=== PATIENT | male | born 1950 | race Caucasian/White ===

== ENCOUNTER 2017-02-09 06:46 | Day surgery (SDC) | payer OTHER ==
[~2017-02-09] VITALS: Ht 167.6 cm; Wt 59.1 kg
[2017-02-09 07:16] VITALS: BP 119/75; PULSE 88; RESP 20; TEMP 97.6; O2SAT 91
[2017-02-09] MEDS ORDERED: SPIRCAP INH (07:35)
[2017-02-09] MEDS ORDERED: LIPI20TA PO (07:35)
[2017-02-09] MEDS ORDERED: PRIL20CA9 PO (07:35)
[2017-02-09] MEDS ORDERED: METO25TA3 PO (07:35)
[2017-02-09] MEDS ORDERED: LOSA25TA PO (07:35)
[2017-02-09] MEDS ORDERED: APIX5TAB PO (07:35)
[2017-02-09] MEDS ORDERED: FURO1TAB62 PO (07:35)
[2017-02-09] MEDS ORDERED: VITA10003 PO (07:35)
[2017-02-09] MEDS ORDERED: PYRI1TAB5 PO (07:35)
[2017-02-09] MEDS ORDERED: SODIUM CHLORIDE 0.9% FLUSH 10 ML FLUSH IV FLUSH PRN (07:45)
[2017-02-09] MEDS ORDERED: LIDOCAINE 1%/EPINEPHrine 1:100,000 SOLN 20 ML VIAL ONE (07:48)
[2017-02-09] MEDS ORDERED: SODIUM CHLOR 0.9% 1000 ML IV SCH (08:00)
[2017-02-09] MEDS ORDERED: MIDAZOLAM HCL 5 MG/5 ML VIAL ONE (08:28)
[2017-02-09] MEDS ORDERED: fentaNYL CITRATE 250 MCG/5 ML AMP ONE (08:28)
[2017-02-09] MEDS ORDERED: SODIUM CHLORIDE 0.9% FLUSH 10 ML FLUSH IV FLUSH SCH (09:00)
[2017-02-09 09:25] VITALS: BP 136/79; PULSE 76; RESP 20; TEMP 98; O2SAT 94
[2017-02-09 09:40] VITALS: BP 100/63; PULSE 68; RESP 20; O2SAT 94
[2017-02-09] MEDS ORDERED: oxyCODONE/ACETAMINOPHEN 5 MG/325 MG TAB PO PRN (10:00)
[2017-02-09 10:10] VITALS: BP 121/67; PULSE 65; RESP 20; O2SAT 94
[2017-02-09 10:40] VITALS: BP_SYST 91; BP_SYST 96; BP_DIAS 55; BP_DIAS 63; PULSE 80; RESP 20; O2SAT 95
[2017-02-09 11:20] VITALS: BP 111/71; PULSE 82; RESP 20; O2SAT 97
--- NOTE | 2017-02-09 16:38 | RADRPT ---
EXAM DATE/TIME: 02/09/2017 08:35 [facility] COMPARISON: No previous studies available for comparison. INDICATIONS : Left adrenal mass. SEDATION TIME: 30 minutes BIOPSY SITE: Left adrenal MEDICATION(S): 1.) 3 mg midazolam (Versed) IV 2.) 150 mcg fentanyl (Sublimaze) IV DEVICE(S): 1.) 18 gauge Rodriguez blunt needle 2.) 20 gauge Temno core biopsy needle MEDICAL HISTORY : Carcinoma, esophageal. SURGICAL HISTORY : None. ENCOUNTER: Initial ACUITY: 1 day PAIN SCORE: 0/10 LOCATION: Left adrenal. A total of two core specimen(s) were obtained and sent to the laboratory for pathologic evaluation. PROCEDURE: 1. CT guided adrenal, left biopsy. 2. Conscious sedation with continuous EKG and oximetry monitoring. 3. EKG and oximetry remained stable throughout the procedure. Prior to the procedure informed consent was obtained. Any appropriate prior imaging studies were rev iewed. Using automated exposure control and adjustment of the mA and/or kV according to patient size, radiat ion dose was kept as low as reasonably achievable to obtain optimal diagnostic quality images. The site was prepped in a sterile fashion. Full sterile technique was used, including cap, mask, cristobal rile gloves and gown and a large sterile sheet. Hand hygiene and 2% chlorhexidine and/or betadine/al cohol prep was utilized per protocol for cutaneous antisepsis. The skin and subcutaneous tissues wer e infiltrated with local anesthetic solution. With CT guidance the previously identified target was localized. Biopsy was performed using the presc ribed needle as above. Adequate hemostasis was obtained with compression at the puncture site. Follow-up CT scan reveals no hemorrhage. The patient tolerated the procedure well and there were no complications. The patient was returned to the Radiology Outpatient Unit in stable condition. CONCLUSION: Uncomplicated CT guided biopsy of left adrenal mass. Freddie Leos MD on February 09, 2017 at 16:35 Board Certified Radiologist. This report was verified electronically.
== END 2017-02-09 11:55 | disposition home or self-care (01) ==
LOC: HRAD 06:46 → HRIP 06:51 → HRAD 11:55
PROVIDERS: ATTEND Internal Medicine
DX: C74.02 Malignant neoplasm of cortex of left adrenal gland (principal)
CPT/HCPCS: 60699; 77012; 88305; 88341; 88342; 99152; 99153; J1642; J2250; J3010; J7030; 88360

== ENCOUNTER → 2017-02-13 | Outpatient (CLI) | payer OTHER ==
[~2017-02-13] VITALS: Ht 167.6 cm; Wt 58.3 kg
[~2017-02-13] MED LIST: APIX5TAB PO; CHLORHEXIDINE GLUCONATE 2 % 1 PACK (2 CLOTHS) TOPICAL PRN; FURO1TAB62 PO; INSULIN HUMAN REGULAR 1,000 UNITS/10 ML VIAL SQ PRN; LACTATED RINGER'S 1000 ML IV PRN; LIPI20TA PO; LOSA25TA PO; METO25TA3 PO; METOPROLOL TARTRATE 25 MG TAB PO PRN; POVIDONE IODINE 5% (ANTISEPSIS KIT) 4 APPLICATIONS EACH NARE PRN; PRIL20CA9 PO; PROPOFOL 200 MG/20 ML AMP IV ONE; PYRI1TAB5 PO; SODIUM CHLORID 0.9% 500 ML IV PRN; SPIRCAP INH; VITA10003 PO
[2017-02-13 08:47] VITALS: BP 120/72; PULSE 88; RESP 18; TEMP 97.5; O2SAT 99
--- NOTE | 2017-02-13 10:11 | EKG ---
Date Performed: 02/13/2017 Time Performed: 08:20:44 PTAGE: 66 years EKG: Sinus rhythm POSSIBLE LEFT ATRIAL ENLARGEMENT LOW QRS VOLTAGE IN EXTREMITY LEADS SEPTAL MYOCARDIAL INFARCTION , O F INDETERMINATE AGE Nonspecific T wave changes Abnormal electrocardiogram NO PREVIOUS TRACING DOCTOR: Quique Hoff Interpretating Date/Time 02/13/2017 10:10:14
[2017-02-13 11:08] VITALS: TEMP 98.4
[2017-02-13 11:22] VITALS: BP 100/64; PULSE 86; RESP 16; O2SAT 95
--- NOTE | 2017-02-13 11:26 | GIPROC ---
[facility] [address] [facility]. [facility], [address] EGD PROCEDURE REPORT EXAM DATE: 02/13/2017 PATIENT NAME: Hiren Mitchell MR #: [id number] BIRTHDATE: 1950 ATTENDING: Sera Cobb MD ORDER #: [id number] OFFSET ASSISTANT PRESS OPERATOR: Joaquin Nicole and Santo Alvarado STATUS: outpatient INDICATIONS: The patient is a 66 yr old male here for an EGD due to history of esophageal cancer , positive pet scan possible recurrence PROCEDURE PERFORMED: EGD w/ biopsy MEDICATIONS: None and Per Anesthesia. TOPICAL ANESTHETIC: Lidocaine Endeavor CONSENT: The patient understands the risks and benefits of the procedure and understands that these risks include, but are not limited to: sedation, allergic reaction, infection, perforation and/or bleeding. Alternative means of evaluation and treatment include, among others: physical exam, x-rays, and/or surgical intervention. The patient elects to proceed with this endoscopic procedure. medical equipment was checked for proper function. Hand hygiene and appropriate measures for infection prevention was taken. After the risks, benefits and alternatives of the procedure were thoroughly explained, Informed consent was verified, confirmed and timeout was successfully executed by the treatment team. The patient was anesthetized with topical anesthesia and the Pentax [id number] and [id number] endoscope was introduced through the mouth and advanced to the second portion of the duodenum. Retroflexed views revealed a hiatal hernia The gastroscope was then slowly withdrawn and removed. Ulcerated mass anastomotic site / possible recurrency -biopsy retained bile in stomach-suctioned s/p gastric pull up. ADVERSE EVENTS: There were no complications. IMPRESSIONS: 1. Ulcerated mass anastomotic site / possible recurrency -biopsy retained bile in stomach-suctioned s/p gastric pull up 2. Retroflexed views revealed a hiatal hernia RECOMMENDATIONS: 1. Await biopsy results. Biopsy results will not be ready for 7-10 days. If you don't hear from us in two weeks, call our office for biopsy results. 2. Continue PPI 3. Dilatations PRN PATIENT CONDITION: stable DISPOSITION: Home REPEAT EXAM: EGD pending biopsy results Sera Cobb MD eSigned: Sera Cobb MD 02/13/2017 11:25 AM cc: PATIENT NAME: Hiren Mitchell Sneha MR#: [id number]
== END ==
LOC: HEND 08:08
PROVIDERS: ATTEND Internal Medicine Gastroenterology
DX: Z85.01 Personal history of malignant neoplasm of esophagus (principal); K63.89 Other specified diseases of intestine; K44.9 Diaphragmatic hernia without obstruction or gangrene; R94.31 Abnormal electrocardiogram [ECG] [EKG]; C15.9 Malignant neoplasm of esophagus, unspecified
CPT/HCPCS: 00740; 43239; 88305; 93005; J7120

== ENCOUNTER → 2017-04-30 | Outpatient (CLI) | payer OTHER, MEDICAID ==
[~2017-04-30] MED LIST changes: +ALBU6.7H INH; -CHLORHEXIDINE GLUCONATE 2 % 1 PACK (2 CLOTHS) TOPICAL PRN; +DONE5TAB7 PO; +IBUP-1129 PO; -INSULIN HUMAN REGULAR 1,000 UNITS/10 ML VIAL SQ PRN; +IRON27TA PO; -LACTATED RINGER'S 1000 ML IV PRN; +MECL-62 PO; +MECL1TAB42; -METOPROLOL TARTRATE 25 MG TAB PO PRN; +OMEP40CA2 PO; +OXYC1TAB63 PO; -POVIDONE IODINE 5% (ANTISEPSIS KIT) 4 APPLICATIONS EACH NARE PRN; +PROCHLORPER PO; -PROPOFOL 200 MG/20 ML AMP IV ONE; -SODIUM CHLORID 0.9% 500 ML IV PRN; +SOTA120T PO; +ZANT150T2 PO
--- NOTE | 2017-04-30 11:16 | RADRPT ---
EXAM DATE/TIME: 04/30/2017 00:00 [facility] COMPARISON: No previous studies available for comparison. INDICATIONS : Dysphagia. FLUORO TIME: 1.0 minutes IMAGE COUNT: 0 CONTRAST: Dose as prescribed by speech pathologist. MEDICAL HISTORY : Carcinoma, esophageal. Chemotherapy. SURGICAL HISTORY : None. ENCOUNTER: Initial ACUITY: 3 months PAIN SCORE: 0/10 LOCATION: Esophagus FINDINGS: A modified barium swallow was performed with speech pathology. The patient was given thin barium, ap plesauce thick barium and barium-coated cracker. The oral phase is normal without delay in posterior propulsion. The pharyngeal phase is also normal without pooling in the paired valleculae or pirifor m sinuses. There is no penetration of the supraglottic larynx or tracheal aspiration. CONCLUSION: Unremarkable modified barium swallow. Vinod Giraldo MD on April 30, 2017 at 11:08 Board Certified Radiologist. This report was verified electronically.
== END ==
LOC: HRAD 10:29
PROVIDERS: ATTEND Internal Medicine
DX: R13.10 Dysphagia, unspecified (principal)
CPT/HCPCS: 74230; G8996-GN; G8997-GN; G8998-GN

== ENCOUNTER 2017-05-01 19:48 | Inpatient (IN) | payer OTHER, MEDICAID, MEDICARE ==
[~2017-05-01] VITALS: Ht 167.6 cm; Wt 51.0 kg
[~2017-05-01 19:48] MED LIST changes: -ALBU6.7H INH; -DONE5TAB7 PO; -IBUP-1129 PO; -IRON27TA PO; -MECL-62 PO; -MECL1TAB42; -OMEP40CA2 PO; -OXYC1TAB63 PO; -PROCHLORPER PO; -SOTA120T PO; -ZANT150T2 PO
[2017-05-01 20:05] VITALS: BP 103/53; PULSE 76; RESP 16; TEMP 98.7; O2SAT 88
[2017-05-01] MEDS ORDERED: SODIUM CHLORIDE 0.9% FLUSH 10 ML FLUSH IVF PRN (20:15)
[2017-05-01] MEDS ORDERED: PANTOPRAZOLE INJ 80 MG in SODIUM CHLORIDE 0.9% INJ 35 ML IV ONE (20:15)
[2017-05-01] MEDS ORDERED: SODIUM CHLORID 0.9% 500 ML INJ 500 ML IV ONE (20:15)
--- NOTE | 2017-05-01 20:19 | PD ---
HPI Chief Complaint: General Weakness Time Seen by Provider: 20:13 Travel History International Travel<30 days: No Contact w/Intl Traveler<30days: No Traveled to known affect area: No History of Present Illness HPI 66-year-old male with history of A. fib currently on Eliquis, AAA repair, COPD, CAD, multiple medical issues, stage IV esophageal cancer currently on chemotherapy and hospice, presents to the ER today because he states that he has been feeling weak and shortness of breath for the past few weeks worsening in the past few days. He admits he has had some black stools although he is on iron. He denies any fevers, vomiting, diarrhea, chest pains, or other issues. Modifying Factors: None Associated Signs & Symptoms: General weakness and shortness of breath Risk Factors: Elderly PFSH Past Medical History Cancer: Yes (ESOPHAGEAL) Cardiovascular Problems: Yes (AFIB,CHF,CAD,HEART ATTACK) Diabetes: No Endocrine: No Genitourinary: No Hepatitis: No Hiatal Hernia: Yes Immune Disorder: No Musculoskeletal: No Neurologic: No Psychiatric: No Reproductive: No Respiratory: Yes (COPD) Thyroid Disease: No ?: Not Past Surgical History Abdominal Surgery: Yes (AAA ) AICD: Yes Body Medical Devices: 2 LEFT LEG, POSSIBLE IN HEART Cardiac Surgery: Yes (AAA REPAIR) Ear Surgery: No Endocrine Surgery: No Eye Surgery: No Genitourinary Surgery: No Gynecologic Surgery: No Joint Replacement: No Oral Surgery: No Pacemaker: Yes (ST LEANDRA PACEMAKER) Thoracic Surgery: Yes (ICD PACEMAKER, PORT TO RIGHT CHEST) Social History Tobacco Use: No Substance Use: No Allergies-Medications (Allergen,Severity, Reaction): Coded Allergies: No Known Allergies (Unverified , 05/01/17) Reported Meds & Prescriptions Reported Meds & Active Scripts Active Reported Vitamin D-3 (Cholecalciferol) 1,000 Unit Tab 1,000 Units PO DAILY Spiriva Handihaler (Tiotropium Inh) 18 Mcg Cap 18 Mcg INH DAILY 1 capsule = 18 mcg Prilosec (Omeprazole) 20 Mg Cap 20 Mg PO DAILY Metoprolol Tartrate 25 Mg Tab 25 Mg PO BID Losartan (Losartan Potassium) 25 Mg Tab 25 Mg PO DAILY Lipitor (Atorvastatin Calcium) 20 Mg Tab 20 Mg PO HS Lasix (Furosemide) 20 Mg Tab 20 Mg PO BID B6 Natural (Pyridoxine HCl) 100 Mg Tab 1 Tab PO DAILY Eliquis (Apixaban) 5 Mg Tab 5 Mg PO BID Review of Systems Except as stated in HPI: all other systems reviewed are Neg Physical Exam Narrative GENERAL: Thin elderly white male patient currently in moderate distress. Awake and oriented 3. SKIN: Focused skin assessment warm/dry. Appears pale. HEAD: Atraumatic. Normocephalic. EYES: Pupils equal and round. No scleral icterus. No injection or drainage. ENT: No nasal bleeding or discharge. Mucous membranes pink and moist. NECK: Trachea midline. No JVD. CARDIOVASCULAR: Regular rate and rhythm. No murmur appreciated. RESPIRATORY: No accessory muscle use. Basilar crackles bilaterally. Breath sounds equal bilaterally. GASTROINTESTINAL: Abdomen soft, non-tender, nondistended. Hepatic and splenic margins not palpable. MUSCULOSKELETAL: No obvious deformities. No clubbing. No cyanosis. No edema. RECTAL EXAM: No masses or tenderness, stool is dark, Hemoccult-positive. NEUROLOGICAL: Awake and alert. No obvious cranial nerve deficits. Motor grossly within normal limits. Normal speech. PSYCHIATRIC: Appropriate mood and affect; insight and judgment normal. Data Data Last Documented VS Vital Signs Date Time Temp Pulse Resp B/P Pulse Ox O2 Delivery O2 Flow Rate FiO2 05/01/17 20:09 18 96 Nasal Cannula 05/01/17 20:05 98.7 76 103/53 Orders Complete Blood Count With Diff (05/01/17 20:13) Comprehensive Metabolic Panel (05/01/17 20:13) Prothrombin Time / Inr (Pt) (05/01/17 20:13) Act Partial Throm Time (Ptt) (05/01/17 20:13) Type And Screen (05/01/17 20:13) Ecg Monitoring (05/01/17 20:13) Iv Access Insert/Monitor (05/01/17 20:13) Oximetry (05/01/17 20:13) Sodium Chloride 0.9% Flush (Ns Flush) (05/01/17 20:15) Pantoprazole Inj (Protonix Inj) (05/01/17 20:15) Pantoprazole Inj (Protonix Inj) (05/01/17 20:15) Sodium Chlorid 0.9% 500 Ml Inj (Ns 500 M (05/01/17 20:15) Prothrombin Complex Conc Inj (Kcentra In (05/01/17 21:15) Admit Order (Ed Use Only) (05/01/17 21:52) Labs Laboratory Tests Test 05/01/17 20:15 White Blood Count 0.3 TH/MM3 Red Blood Count 3.99 MIL/MM3 Hemoglobin 10.3 GM/DL Hematocrit 31.3 % Mean Corpuscular Volume 78.5 FL Mean Corpuscular Hemoglobin 25.9 PG Mean Corpuscular Hemoglobin 33.0 % Concent Red Cell Distribution Width 19.8 % Platelet Count 101 TH/MM3 Mean Platelet Volume 7.4 FL Neutrophils (%) (Auto) % Lymphocytes (%) (Auto) % Monocytes (%) (Auto) % Eosinophils (%) (Auto) % Basophils (%) (Auto) % Neutrophils # (Auto) TH/MM3 Lymphocytes # (Auto) TH/MM3 Monocytes # (Auto) TH/MM3 Eosinophils # (Auto) TH/MM3 Basophils # (Auto) TH/MM3 CBC Comment AUTO DIFF Differential Total Cells 50 Counted Neutrophils % (Manual) 26 % Band Neutrophils % 8 % Lymphocytes % 56 % Monocytes % 10 % Neutrophils # (Manual) 0.1 TH/MM3 Nucleated Red Blood Cells 4 /100 WBC Differential Comment FINAL DIFF MANUAL Platelet Estimate LOW Platelet Morphology Comment NORMAL Ovalocytes 2+ Keratocytes OCC Prothrombin Time 14.0 SEC Prothromb Time International 1.3 RATIO Ratio Activated Partial 33.1 SEC Thromboplast Time Sodium Level 134 MEQ/L Potassium Level 4.7 MEQ/L Chloride Level 101 MEQ/L Carbon Dioxide Level 25.2 MEQ/L Anion Gap 8 MEQ/L Blood Urea Nitrogen 45 MG/DL Creatinine 1.48 MG/DL Estimat Glomerular Filtration 48 ML/MIN Rate Random Glucose 140 MG/DL Calcium Level 8.0 MG/DL Total Bilirubin 1.3 MG/DL Aspartate Amino Transf 25 U/L (AST/SGOT) Alanine Aminotransferase 23 U/L (ALT/SGPT) Alkaline Phosphatase 69 U/L Total Protein 5.8 GM/DL Albumin 2.6 GM/DL Blood Type A POSITIVE Antibody Screen NEGATIVE Blood Bank Comment [facility] Medical Decision Making Medical Screen Exam Complete: Yes Emergency Medical Condition: Yes Medical Record Reviewed: Yes Interpretation(s) Laboratory Tests Test 05/01/17 20:15 White Blood Count 0.3 TH/MM3 (4.0-11.0) Red Blood Count 3.99 MIL/MM3 (4.50-5.90) Hemoglobin 10.3 GM/DL (13.0-17.0) Hematocrit 31.3 % (39.0-51.0) Mean Corpuscular Volume 78.5 FL (80.0-100.0) Mean Corpuscular Hemoglobin 25.9 PG (27.0-34.0) Red Cell Distribution Width 19.8 % (11.6-17.2) Platelet Count 101 TH/MM3 (150-450) Band Neutrophils % 8 % (0-6) Lymphocytes % 56 % (9-44) Monocytes % 10 % (0-8) Neutrophils # (Manual) 0.1 TH/MM3 (1.8-7.7) Nucleated Red Blood Cells 4 /100 WBC (0-0) Platelet Estimate LOW (NORMAL) Ovalocytes 2+ (NORMAL) Prothrombin Time 14.0 SEC (9.8-11.6) Activated Partial 33.1 SEC Thromboplast Time (24.3-30.1) Sodium Level 134 MEQ/L (136-145) Blood Urea Nitrogen 45 MG/DL (7-18) Creatinine 1.48 MG/DL (0.60-1.30) Estimat Glomerular Filtration 48 ML/MIN (>89) Rate Random Glucose 140 MG/DL (74-106) Calcium Level 8.0 MG/DL (8.5-10.1) Total Bilirubin 1.3 MG/DL (0.2-1.0) Total Protein 5.8 GM/DL (6.4-8.2) Albumin 2.6 GM/DL (3.4-5.0) Differential Diagnosis Dehydration versus sepsis versus metabolic issues versus pneumonia versus anemia /GI bleed Narrative Course Vital signs are stable in the ER. Hemoglobin is 10. However, he is very neutropenic. He is not running fevers and is not showing signs of sepsis currently. He is Hemoccult positive and has a GI bleed. Protonix was initiated in the ER with bolus and drip. He is on Eliquis and case Central was also started in the ER. At this point, case is discussed with Dr. Barbosa for admission for further treatment. HemaPrompt Point of Care Internal Pos. & Neg. Controls: Passed Fecal Specimen Occult Blood: Positive Diagnosis Primary Impression: GI bleed Additional Impression: Neutropenia Admitting Information Admitting Physician Requests: Admit Obed Pineda MD May 01, 2017:19
[2017-05-01 20:49] LABS: HEMATOCRIT 31.3 % (39.0-51.0); MEAN CELL VOLUME 78.5 FL (80.0-100.0); MEAN CORPUSCULAR HEMOGLOBIN 25.9 PG (27.0-34.0); PLATELET COUNT 101 TH/MM3 (150-450); RED BLOOD COUNT 3.99 MIL/MM3 (4.50-5.90); RED CELL DISTRIBUTION WIDTH 19.8 % (11.6-17.2); WHITE BLOOD COUNT 0.3 TH/MM3 (4.0-11.0)
[2017-05-01 20:59] LABS: APTT (PATIENT) 33.1 SEC (24.3-30.1); INTERNATIONAL NORMALIZED RATIO 1.3 RATIO
[2017-05-01 21:04] LABS: HEMO FLAGS AUTO DIFF
[2017-05-01] MEDS ORDERED: PROTHROMBIN COMPLEX CONC INJ 1,500 UNITS in SYRINGE/BAG 1 EA IV ONE (21:15)
[2017-05-01 21:17] LABS: ALKALINE PHOSPHATASE 69 U/L (45-117); ALT (GPT) 23 U/L (12-78); ANION GAP 8 MEQ/L (5-15); AST (GOT) 25 U/L (15-37); BICARBONATE 25.2 MEQ/L (21.0-32.0); BLOOD UREA NITROGEN 45 MG/DL (7-18); CHLORIDE 101 MEQ/L (98-107); GLOMERULAR FILTRATION RATE 48 ML/MIN (>89); POTASSIUM 4.7 MEQ/L (3.5-5.1); SODIUM (NA) 134 MEQ/L (136-145); TOTAL BILIRUBIN ADULT 1.3 MG/DL (0.2-1.0)
[2017-05-01 21:26] LABS: BANDS 8 % (0-6); CORRECTED NUCLEATED RBC 4 /100 WBC (0-0); POLYS (SEG NEUTROPHILS) 26 % (16-70); WBC DIFF SAMPLE 50
[2017-05-01 21:28] LABS: KERATOCYTES OCC (NORMAL); OVALOCYTES 2+ (NORMAL); PLATELET ESTIMATE SMEAR LOW (NORMAL); PLATELET MORPHOLOGY NORMAL (NORMAL); SCAN/DIFF FINAL DIFF MANUAL
[2017-05-01 21:32] LABS: NEUTROPHIL # MANUAL DIFF 0.1 TH/MM3 (1.8-7.7)
[2017-05-01] MEDS: SODIUM CHLOR 0.9% 1000 ML INJ 1,000 ML IV SCH (21:53)
--- NOTE | 2017-05-01 21:58 | HHI.HP ---
HPI Service [facility] Primary Care Physician Anshu Chicas M.D. Admission Diagnosis GI bleed/severe neutropenia Diagnoses: (1) GI bleed Diagnosis: Principal (2) Neutropenia Diagnosis: Principal (3) Bandemia Diagnosis: Principal (4) Esophageal cancer Diagnosis: Principal (5) A-fib Diagnosis: Principal Travel History International Travel<30 Days: No Contact w/Intl Traveler <30 Da: No Traveled to Known Affected Are: No History of Present Illness This is a 66-year-old male with a PMH of Stage IV Esophageal CA on Chemo/Hospice , A-fib on Eliquis, HTN, COPD and CAD who presented to the ER with complaints of generalized weakness and SOB, also reports black/tarry stool x2-3 days. Denies fever, chills, cough or chest pain. Follows w/ Dr. Fry as outpatient, last seen on 04/28/17 w/ complaints of dysphagia, referred for Barium Swallow and GI eval w/ Dr. King, Barium Swallow 04/30/17 unremarkable. On arrival, BP 13 or 53, HR 76, O2 sat 88% on RA, Afebrile. WBC 0.3, previously 7.4 on 04/28. Hemoglobin 10.3, previously 10.7. Platelets 101, previously 256 on . Bands 8%. Creatinine 1.48, previously 1.04 on 04/28/17. INR 1.3. Hemoccult + on exam. Started on Protonix gtt in ER. Review of Systems Except as stated in HPI: all other systems reviewed are Neg ROS: 14 point review of systems otherwise negative. Past Family Social History Past Medical History PMH: Stage IV Esophageal CA on Chemo/Hospice, A-fib on Eliquis, HTN, COPD and CAD Past Surgical History PAST SURGICAL HISTORY: AAA Repair, AICD ([place]), Right Chest Port Allergies: Coded Allergies: No Known Allergies (Unverified , 05/01/17) Family History PAST FAMILY HISTORY: Reviewed. No h/o DM or CAD Social History PAST SOCIAL HISTORY: Negative for alcohol, tobacco or drugs. Physical Exam Vital Signs Vital Signs Date Time Temp Pulse Resp B/P Pulse Ox O2 Delivery O2 Flow Rate FiO2 05/01/17 20:09 18 96 Nasal Cannula 05/01/17 20:05 98.7 76 16 103/53 88 Physical Exam PE: GENERAL: Middle-aged, thin, frail, white male in no acute distress. HEENT: PERRLA, EOMI. No scleral icterus or conjunctival pallor. No lid lag or facial droop. CARDIOVASCULAR: Regular rate and rhythm. No obvious murmurs to auscultation. No chest tenderness to palpation. RESPIRATORY: No obvious rhonchi or wheezing. Crackles at bases bilaterally otherwise breath sounds equal bilaterally. GASTROINTESTINAL: Abdomen soft, non-tender, nondistended. BS normal. MUSCULOSKELETAL: Extremities without clubbing, cyanosis, or edema. No obvious deformities. NEUROLOGICAL: Awake, alert and oriented x4. No focal neurologic deficits. Moving both upper and lower extremities spontaneously. Laboratory Laboratory Tests Test 05/01/17 20:15 White Blood Count 0.3 Red Blood Count 3.99 Hemoglobin 10.3 Hematocrit 31.3 Mean Corpuscular Volume 78.5 Mean Corpuscular Hemoglobin 25.9 Mean Corpuscular Hemoglobin 33.0 Concent Red Cell Distribution Width 19.8 Platelet Count 101 Mean Platelet Volume 7.4 Neutrophils (%) (Auto) Lymphocytes (%) (Auto) Monocytes (%) (Auto) Eosinophils (%) (Auto) Basophils (%) (Auto) Neutrophils # (Auto) Lymphocytes # (Auto) Monocytes # (Auto) Eosinophils # (Auto) Basophils # (Auto) CBC Comment AUTO DIFF Differential Total Cells 50 Counted Neutrophils % (Manual) 26 Band Neutrophils % 8 Lymphocytes % 56 Monocytes % 10 Neutrophils # (Manual) 0.1 Nucleated Red Blood Cells 4 Differential Comment FINAL DIFF MANUAL Platelet Estimate LOW Platelet Morphology Comment NORMAL Ovalocytes 2+ Keratocytes OCC Prothrombin Time 14.0 Prothromb Time International 1.3 Ratio Activated Partial 33.1 Thromboplast Time Sodium Level 134 Potassium Level 4.7 Chloride Level 101 Carbon Dioxide Level 25.2 Anion Gap 8 Blood Urea Nitrogen 45 Creatinine 1.48 Estimat Glomerular Filtration 48 Rate Random Glucose 140 Calcium Level 8.0 Total Bilirubin 1.3 Aspartate Amino Transf 25 (AST/SGOT) Alanine Aminotransferase 23 (ALT/SGPT) Alkaline Phosphatase 69 Total Protein 5.8 Albumin 2.6 Blood Type A POSITIVE Antibody Screen NEGATIVE Blood Bank Comment Result Diagram: 05/01/17201405/01/172014 Assessment and Plan Problem List: (1) GI bleed ICD Code: K92.2 Status: Acute (2) Esophageal cancer ICD Code: C15.9 Status: Acute (3) Neutropenia ICD Code: D70.9 Status: Acute (4) Bandemia ICD Code: D72.825 Status: Acute (5) A-fib ICD Code: I48.91 Status: Acute Assessment and Plan A/P: 1. GI Bleed: h/o A-fib on Eliquis, c/o black stool x2-3 days, Hemoccult + on exam. Vitals stable. Hgb 10.3, at baseline. Type & Screen, monitor Hgb/Hct, started on Protonix gtt in ER, will continue. Consult GI for further eval. S/ p Kcentra in ER. 2. Esophageal CA: Stage IV, currently on Chemo/Hospice, following w/ Dr. Fry , last seen 04/28/17 w/ c/o dysphagia, referred for GI and Barium Swallow, Swallow 04/30/17 unremarkable, images reviewed by me. Will consult Dr. Fry for further recommendations. 3. Neutropenia: WBC 0.3, previously 7.4 on 04/28/17. Afebrile. Neutropenic Precautions. 4. Bandemia: Bands 8%, Afebrile. Check Blood Cultures, CXR, U/a. Start empiric treatment w/ IV Cefepime. Will monitor, follow cultures. 5. A-fib: Chronic. On Eliquis, will hold in light of GI Bleed. Hold Metoprolol/Sotalol in light of borderline hypotension. Will monitor. 6. DVT Prophylaxis: Pharmacologic contraindication secondary to GI Bleed. 7. Code Status: Full Code. Discussed Code Status at length w/ patient, does have living will at bedside stating no resuscitation, however upon discussion w / patient, he does wish to proceed w/ IV medications, Vasopressors, Compressions , Intubation if needed. 8. Social work for d/c planning as needed. 9. Case discussed w/ ER physician at length Physician Certification 2 Midnight Certification Type: Admission for Inpatient Services Order for Inpatient Services The services are ordered in accordance with Medicare regulations or non- Medicare payer requirements, as applicable. In the case of services not specified as inpatient-only, they are appropriately provided as inpatient services in accordance with the 2-midnight benchmark. Estimated LOS (days): 2 days is the estimated time the patient will need to remain in the hospital, assuming treatment plan goals are met and no additional complications. Post-Hospital Plan: Not yet determined Chanell Barbosa MD May 01, 2017 21:58
[2017-05-01] MEDS ORDERED: LACTULOSE SYRUP 20 GM/30 ML CUP PO PRN (22:00)
[2017-05-01] MEDS ORDERED: BISACODYL 10 MG SUPP RECTAL PRN (22:00)
[2017-05-01] MEDS ORDERED: ONDANSETRON HCL 4 MG/2 ML VIAL IVP PRN (22:00)
[2017-05-01] MEDS ORDERED: ACETAMINOPHEN/HYDROcodone 325 MG/5 MG TAB PO PRN (22:00)
[2017-05-01] MEDS ORDERED: CEFEPIME INJ 1,000 MG in SODIUM CHLORIDE 0.9% INJ 100 ML IV SCH (22:00)
[2017-05-01] MEDS ORDERED: MAGNESIUM HYDROXIDE SUSP 30 ML CUP PO PRN (22:00)
[2017-05-01] MEDS ORDERED: SODIUM CHLORIDE 0.9% FLUSH 10 ML FLUSH IV FLUSH PRN (22:00)
[2017-05-01] MEDS ORDERED: CEFEPIME 2000 MG/NS 100 ML IV SCH ×2 (22:00)
[2017-05-01] MEDS ORDERED: SENNOSIDES 8.6 MG TAB PO PRN (22:00)
[2017-05-01] MEDS ORDERED: ACETAMINOPHEN 325 MG TAB PO PRN (22:00)
[2017-05-01] MEDS ORDERED: PROCHLORPER PO (22:32)
[2017-05-01] MEDS ORDERED: IRON27TA PO (22:32)
[2017-05-01] MEDS ORDERED: SOTA120T PO (22:32)
[2017-05-01] MEDS ORDERED: DONE5TAB7 PO (22:32)
[2017-05-01] MEDS ORDERED: OMEP40CA2 PO (22:32)
[2017-05-01] MEDS ORDERED: OXYC1TAB63 PO (22:32)
[2017-05-01] MEDS ORDERED: MECL1TAB42 (22:32)
[2017-05-01] MEDS ORDERED: ZANT150T2 PO (22:32)
[2017-05-01] MEDS ORDERED: IBUP-1129 PO (22:32)
[2017-05-01] MEDS ORDERED: ALBU6.7H INH (22:32)
[2017-05-01] MEDS ORDERED: MECL-62 PO (22:32)
--- NOTE | 2017-05-01 22:39 | RADRPT ---
EXAM DATE/TIME: 05/01/2017 22:16 [facility] COMPARISON: No previous studies available for comparison. INDICATIONS : Shortness of breath. MEDICAL HISTORY : Carcinoma, esophageal. SURGICAL HISTORY : None. ENCOUNTER: Initial ACUITY: 1 week PAIN SCORE: 0/10 LOCATION: Bilateral chest FINDINGS: A single view of the chest demonstrates right [id number] and superior vena cava. Pacer lead tip in right ventricle. Small right effusion. Minimal basal airspace disease. Multiple surgical clips in th e mediastinum. CONCLUSION: 1. Blunting of the right costophrenic angle characteristic of a small effusion or scarring. Minimal b mike atelectasis. Rod Hernandez MD on May 01, 2017 at 22:36 Board Certified Radiologist. This report was verified electronically.
[2017-05-01] MEDS ORDERED: MECLIZINE HCL 25 MG TAB PO PRN (23:30)
[2017-05-01] MEDS ORDERED: ALBUTEROL SULFATE 90 MCG/ACT HFA 18 GM INHALER INH PRN (23:45)
[2017-05-01] MEDS: PANTOPRAZOLE INJ 80 MG in SODIUM CHLORIDE 0.9% INJ 100 ML IV SCH (23:48)
[2017-05-02] VITALS (21 sets, daily range): BP systolic 62–138; BP diastolic 40–66; PULSE 63–80; RESP 16–27; TEMP 97.4–98.8; O2SAT 88–100
[2017-05-02] MEDS ORDERED: SODIUM CHLOR 0.9% 1000 ML INJ 1,000 ML IV ONE (01:45)
--- NOTE | 2017-05-02 02:06 | HHI.PR ---
Addendum to Inpatient Note Addendum Reason: Additional Documentation Additional Information S: Patient is a 66-year-old with neutropenia, undergoing chemotherapy and radiation for esophageal cancer, here for a suspected GI bleed (Hemoccult- positive), who had TeresaBrittny called for hypotension and low pulse ox. Resident service received a call from call center at 1:29 AM. Promptly arrived at bedside to find patient sitting in no acute distress. Patient denies any chest pain, shortness of breath, lightheadedness, dizziness, presyncope, syncope. Per nurse report, his extremities are cold, it's difficult to palpate a radial pulse , he has acrocyanosis, pulse ox in the 70s and blood pressure in the 70s as well. Patient does endorse melanotic stools, but reports that he is on iron. O: Vitals: Blood pressure 70/47, pulse ox 88, pulse 73. Gen.: Cachectic gentleman lying in bed in no acute distress Respiratory: Diffusely coarse, rhonchorous breath sounds Cardiovascular: Difficult to appreciate over rhonchorous breath sounds Abdomen: Soft, mildly tender to palpation in the left lower quadrant with associated rebound tenderness, nondistended Extremities: Hands and feet are cold to the touch with acrocyanosis of the nails. No tenderness or edema. A/P: Patient is a 66-year-old with a history of heart failure and COPD and neutropenia, undergoing chemotherapy and radiation for esophageal cancer, here for a suspected GI bleed, who had TeresaBrittny called for hypotension. Differential diagnosis includes septic shock versus cardiogenic shock versus volume depletion. 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 Ordered transfusion of 2 units PRBC with neutropenic precautions per blood bank Stat abdominal x-ray, flat and upright - my read at bedside shows no free air under diaphragm, unlikely perforation Stiven Gupta MD R1 May 02, 2017 02:06
[2017-05-02 02:10] LABS: INTERNATIONAL NORMALIZED RATIO 1.2 RATIO; PROTHROMBIN TIME - PATIENT 13.6 SEC (9.8-11.6)
[2017-05-02 02:12] LABS: HEMATOCRIT 22.8 % (39.0-51.0)
[2017-05-02] MEDS ORDERED: NOREPINEPHRINE-DEXTROSE DRIP 250 ML IV ONE (02:12)
[2017-05-02 02:14] LABS: REVIEW FLAG FINAL
[2017-05-02] MEDS: SODIUM CHLOR 0.9% 1000 ML INJ 1,000 ML IV SCH ×2 (02:26→12:28)
[2017-05-02] MEDS ORDERED: diphenhydrAMINE HCL 25 MG CAP PO PRN (02:30)
[2017-05-02] MEDS ORDERED: ACETAMINOPHEN 325 MG TAB PO PRN (02:30)
[2017-05-02] MEDS ORDERED: SODIUM CHLOR 0.9% 250 ML INJ 250 ML IV ONE (02:30)
[2017-05-02] MEDS ORDERED: FUROSEMIDE 20 MG/2 ML VIAL IV ONE (02:30)
[2017-05-02] MEDS ORDERED: Vancomycin Consult Pharmacy 1 EA OTHER SCH (04:00)
[2017-05-02] MEDS ORDERED: VANCOMYCIN INJ 1,000 MG in SODIUM CHLOR 0.9% 250 ML INJ 250 ML IV ONE (04:00)
[2017-05-02] MEDS: VASOPRESSIN INJ 40 UNITS in DEXTROSE 5% IN WATER 100ML INJ 98 ML IV SCH ×4 (04:03→21:28)
[2017-05-02] MEDS: NOREPINEPHRINE 4 MG/D5W 250 ML IV SCH ×3 (04:03→14:45)
--- NOTE | 2017-05-02 04:20 | PD.CONS ---
HPI Service Critical Care Medicine Consult Requested By Primary Care Physician Anshu Chicas M.D. History of Present Illness 66-year-old male with a Stage IV Esophageal cancer treated with chemotherapy, atrial fibrillation on Eliquis, hypertension, COPD, coronary artery disease presented to the ER with complaints of generalized weakness and shortness of breath, and also reports black/tarry stool x 2-3 days. Denies fever, chills, cough or chest pain. Follows w/ Dr. Fry as outpatient, last seen on 04/28/17 w / complaints of dysphagia, referred for Barium Swallow and GI eval w/ Dr. King, Barium Swallow 04/30/17 unremarkable. On arrival he was hemodynamically stable with hemoglobin 10.7. database specialist today he was found to be hypotensive with hemoglobin dropped to 7.5 and is now transferred to ICU. Critical care consult was requested and assistance to manage hypotension and GI bleed. His white count is also found to be 0.3 and neutrophils 0.1. Review of Systems Constitutional: COMPLAINS OF: Diaphoretic episodes, Fatigue, Dizziness, DENIES : Fever, Weight gain, Weight loss, Chills, Change in appetite, Night Sweats Endocrine: DENIES: Heat/cold intolerance, Polydipsia, Polyuria, Polyphagia Eyes: DENIES: Blurred vision, Diplopia, Eye inflammation, Eye pain, Vision loss , Photosensitivity, Double Vision Ears, nose, mouth, throat: DENIES: Tinnitus, Hearing loss, Vertigo, Nasal discharge, Oral lesions, Throat pain, Hoarseness, Ear Pain, Running Nose, Epistaxis, Sinus Pain, Toothache, Odynophagia Respiratory: DENIES: Apneas, Cough, Snoring, Wheezing, Hemoptysis, Sputum production, Shortness of breath Cardiovascular: DENIES: Chest pain, Palpitations, Syncope, Dyspnea on Exertion , PND, Lower Extremity Edema, Orthopnea, Claudication Gastrointestinal: COMPLAINS OF: Bloody stools, Nausea, DENIES: Abdominal pain , Black stools, Constipation, Diarrhea, Vomiting, Difficulty Swallowing, Anorexia Genitourinary: DENIES: Sexual dysfunction, Urinary frequency, Urinary incontinence, Urgency, Hematuria, Dysuria, Nocturia, Penile Discharge, Testicular Pain, Testicular Swelling Musculoskeletal: DENIES: Joint pain, Muscle aches, Stiffness, Joint Swelling, Back pain, Neck pain Integumentary: DENIES: Abnormal pigmentation, Nail changes, Pruritus, Rash Hematologic/lymphatic: DENIES: Bruising, Lymphadenopathy Immunologic/allergic: DENIES: Eczema, Urticaria Neurologic: DENIES: Abnormal gait, Headache, Localized weakness, Paresthesias, Seizures, Speech Problems, Tremor, Poor Balance Psychiatric: DENIES: Anxiety, Confusion, Mood changes, Depression, Hallucinations, Agitation, Suicidal Ideation, Homicidal Ideation, Delusions Past Family Social History Allergies: Coded Allergies: No Known Allergies (Unverified , 05/01/17) Past Medical History Stage IV esophageal cancer on chemotherapy Atrial fibrillation Eliquis Hypertension COPD Coronary artery disease Past Surgical History AAA repair AICD ([place]), Right Chest Port Reported Medications Reported Meds & Active Scripts Active Reported Iron (Ferrous Gluconate) 27 Mg Tab 65 Mg PO DAILY Sotalol (Sotalol HCl) 120 Mg Tab 120 Mg PO BID Donepezil 5 Mg Tab 5 Mg PO HS Zantac (Ranitidine HCl) 150 Mg Tab 150 Mg PO DAILY [Prochlorper] 10 Mg PO DIRECTED Meclizine (Meclizine HCl) 25 Mg Tab 25 Mg PO TID PRN Meclizine 25 (Meclizine HCl) 25 Mg Tab Oxycodone-Acetaminophen 5-325 mg Tab 1 Tab PO Q4H PRN Proventil Hfa 6.7 GM Inh (Albuterol Sulfate) 90 Mcg/Act Aer 2 Puff INH Q6H PRN Motrin Ib (Ibuprofen) 200 Mg Tablet 600 Mg PO Q8HR PRN Omeprazole 40 Mg Cap 40 Mg PO DAILY Vitamin D-3 (Cholecalciferol) 1,000 Unit Tab 1,000 Units PO DAILY Spiriva Handihaler (Tiotropium Inh) 18 Mcg Cap 18 Mcg INH DAILY 1 capsule = 18 mcg Metoprolol Tartrate 25 Mg Tab 25 Mg PO BID Losartan (Losartan Potassium) 25 Mg Tab 25 Mg PO DAILY Lipitor (Atorvastatin Calcium) 20 Mg Tab 20 Mg PO HS Lasix (Furosemide) 20 Mg Tab 20 Mg PO BID B6 Natural (Pyridoxine HCl) 100 Mg Tab 1 Tab PO DAILY Eliquis (Apixaban) 5 Mg Tab 5 Mg PO BID Active Ordered Medications Current Medications Medications (Trade) Dose Ordered Sig/Eliecer Route PRN Reason Start Time Stop Time Status Last Admin Dose Admin Pantoprazole Sodium 80 mg/ Sodium Chloride 100 ml @ 10 mls/hr Q10H IV 05/01/17 20:15 05/01/17 23:48 Sodium Chloride (NS 1000 ml Inj) 1,000 ml @ 100 mls/hr Q10H IV 05/01/17 21:53 05/02/17 02:26 Sodium Chloride (NS Flush) 2 ml UNSCH PRN IV FLUSH FLUSH AFTER USING IV ACCESS 05/01/17 22:00 Sodium Chloride (NS Flush) 2 ml BID IV FLUSH 05/02/17 09:00 Ondansetron HCl (Zofran Inj) 4 mg Q6H PRN IVP NAUSEA OR VOMITING 05/01/17 22:00 Acetaminophen (Tylenol) 650 mg Q6H PRN PO FEVER/PAIN SCALE 1 TO 2 05/01/17 22:00 Acetaminophen/ Hydrocodone Bitart ([place] 5-325 Mg) 1 tab Q4H PRN PO PAIN SCALE 3 TO 5 05/01/17 22:00 Hydromorphone HCl (Dilaudid Pf Inj) 0.5 mg Q3H PRN IV Pain 6-10 05/01/17 22:00 Senna/Docusate Sodium (Alejandra-Colace) 1 tab BID PO 05/02/17 09:00 Magnesium Hydroxide (Milk Of Magnrichard Liq) 30 ml Q12H PRN PO MILD - MODERATE CONSTIPATION 05/01/17 22:00 Sennosides (Senokot) 17.2 mg Q12H PRN PO MODERATE - SEVERE CONSTIPATION 05/01/17 22:00 Bisacodyl (Dulcolax Supp) 10 mg DAILY PRN RECTAL SEVERE CONSITIPATION 05/01/17 22:00 Lactulose 30 ml 30 ml DAILY PRN PO SEVERE CONSITIPATION 05/01/17 22:00 Cefepime HCl/ Sodium Chloride (Maxipime Inj/NS Inj) 100 ml @ 200 mls/hr Q24H IV 05/01/17 22:00 05/01/17 22:00 Albuterol Sulfate (Ventolin Hfa Inh) 2 puff Q6H PRN INH SHORTNESS OF BREATH 05/01/17 23:45 Donepezil HCl (Aricept) 5 mg HS PO 05/02/17 21:00 Meclizine HCl (Antivert) 25 mg TID PRN PO VERTIGO 05/01/17 23:30 Tiotropium [place] (Spiriva Inh) 18 mcg DAILY INH 05/02/17 09:00 Ferrous Sulfate 325 mg 325 mg DAILY PO 05/02/17 09:00 Sodium Chloride (NS 250 ml Inj) 250 ml @ 15 mls/hr ONCE ONCE IV 05/02/17 02:30 05/02/17 19:09 05/02/17 02:30 Acetaminophen (Tylenol) 650 mg Q4H PRN PO SEE LABEL COMMENTS 05/02/17 02:30 05/02/17 06:31 Diphenhydramine HCl 25 mg 25 mg Q4H PRN PO SEE LABEL COMMENTS 05/02/17 02:30 05/02/17 06:31 Norepinephrine Bitartrate 250 ml @ 0 mls/hr TITRATE IV 05/02/17 02:45 05/02/17 04:03 Vasopressin 40 units/Dextrose 100 ml @ 1.5 mls/hr Q24H IV 05/02/17 04:00 05/02/17 04:03 Pharmacy Profile Note 0 ml @ 0 mls/hr UNSCH OTHER 05/02/17 04:00 Vancomycin HCl/ Sodium Chloride (Vancomycin Inj/ NS 250 ml Inj) 250 ml @ 250 mls/hr ONCE ONCE IV 05/02/17 04:00 05/02/17 04:59 UNV Hydrocortisone Sodium Succinate 100 mg 100 mg Q6HR IV PUSH 05/02/17 06:00 Metronidazole (Flagyl 500 Mg Inj) 100 ml @ 100 mls/hr Q6H IV 05/02/17 04:00 Family History No family history of cancer coronary artery disease or diabetes mellitus Social History Negative for alcohol tobacco or illicit drug abuse Physical Exam Vital Signs Vital Signs Date Time Temp Pulse Resp B/P Pulse Ox O2 Delivery O2 Flow Rate FiO2 05/02/17 02:12 97 Nasal Cannula 3.00 97 05/02/17 02:00 72 05/02/17 01:55 99 8.00 05/02/17 01:41 70/47 05/02/17 01:38 63/40 05/02/17 01:30 77/45 88 05/02/17 01:20 62/41 05/02/17 01:15 65/43 05/02/17 00:26 16 100 4 05/02/17 00:00 80 16 138/66 96 Nasal Cannula 4 05/01/17 20:09 18 96 Nasal Cannula 05/01/17 20:05 98.7 76 16 103/53 88 Physical Exam GENERAL: Extremely cachectic sick man SKIN: Warm and dry. HEAD: Normocephalic. EYES: No scleral icterus. No injection or drainage. NECK: Supple, trachea midline. No JVD or lymphadenopathy. CARDIOVASCULAR: Regular rate and rhythm without murmurs, gallops, or rubs. RESPIRATORY: Breath sounds equal bilaterally. No accessory muscle use. GASTROINTESTINAL: Abdomen soft, non-tender, nondistended. MUSCULOSKELETAL: No cyanosis, or edema. BACK: Nontender without obvious deformity. No CVA tenderness. EXTREMITIES: Moves all 4, no clubbing or edema Laboratory Laboratory Tests Test 05/01/17 05/02/17 05/02/17 05/02/17 20:15 01:35 02:28 03:46 White Blood Count 0.3 Red Blood Count 3.99 Hemoglobin 10.3 7.5 Hematocrit 31.3 22.8 Mean Corpuscular Volume 78.5 Mean Corpuscular Hemoglobin 25.9 Mean Corpuscular Hemoglobin 33.0 Concent Red Cell Distribution Width 19.8 Platelet Count 101 Mean Platelet Volume 7.4 Neutrophils (%) (Auto) Lymphocytes (%) (Auto) Monocytes (%) (Auto) Eosinophils (%) (Auto) Basophils (%) (Auto) Neutrophils # (Auto) Lymphocytes # (Auto) Monocytes # (Auto) Eosinophils # (Auto) Basophils # (Auto) CBC Comment AUTO DIFF Differential Total Cells 50 Counted Neutrophils % (Manual) 26 Band Neutrophils % 8 Lymphocytes % 56 Monocytes % 10 Neutrophils # (Manual) 0.1 Nucleated Red Blood Cells 4 Differential Comment FINAL DIFF MANUAL Platelet Estimate LOW Platelet Morphology Comment NORMAL Ovalocytes 2+ Keratocytes OCC Prothrombin Time 14.0 13.6 Prothromb Time International 1.3 1.2 Ratio Activated Partial 33.1 Thromboplast Time Sodium Level 134 Potassium Level 4.7 Chloride Level 101 Carbon Dioxide Level 25.2 Anion Gap 8 Blood Urea Nitrogen 45 Creatinine 1.48 Estimat Glomerular Filtration 48 Rate Random Glucose 140 Calcium Level 8.0 Total Bilirubin 1.3 Aspartate Amino Transf 25 (AST/SGOT) Alanine Aminotransferase 23 (ALT/SGPT) Alkaline Phosphatase 69 Total Protein 5.8 Albumin 2.6 Blood Type A POSITIVE A POSITIVE A POSITIVE Antibody Screen NEGATIVE Blood Bank Comment Crossmatch Irradiated/Leukocyte-Reduced RBC Date/Time Procedure Status Source Growth 05/01/17 23:54 Aerobic Blood Culture Received Blood Peripheral Pending 05/01/17 23:54 Anaerobic Blood Culture Received Blood Peripheral Pending Result Diagram: 05/02/17 0135 05/01/172014 Assessment and Plan Assessment and Plan GI bleed - Protonix drip - GI consult - Monitor H&H and transfuse if indicated Anemia - Blood loss - Transfuse 2 units of PRBC Neutropenic sepsis - Vancomycin cefepime and Flagyl - ID consult - Hematology consult - Neupogen ? - Follow-up cultures - Levophed and vasopressin to keep map above 65 Esophageal cancer - Stage IV - Management per Hematology/oncology Acute kidney injury - Dehydration - Strict I's and O - IV fluids resuscitation - Monitor trend of creatinine and electrolytes DVT GI prophylaxis - Teds SCDs - No pharmacological DVT prophylaxis due to active GI bleed - Protonix drip Critical Care: The total critical care time was 35 minutes. Time to perform other separately billable procedures was not included in the critical care time. Aníbal Chatman MD May 02, 2017 04:20
[2017-05-02] MEDS: metroNIDAZOLE 500 MG INJ 100 ML IV SCH ×4 (04:40→21:13)
[2017-05-02] MEDS: HYDROCORTISONE SOD SUCCINATE 100 MG VIAL IV PUSH SCH ×3 (04:41→18:07)
--- NOTE | 2017-05-02 05:20 | RADRPT ---
EXAM DATE/TIME: 05/02/2017 02:22 [place] COMPARISON: No previous studies available for comparison. INDICATIONS : Unknown blood loss, history of GI Bleed. MEDICAL HISTORY : Carcinoma, esophageal. SURGICAL HISTORY : None. ENCOUNTER: Initial ACUITY: 1 week PAIN SCORE: 8/10 LOCATION: Bilateral Abdomen FINDINGS: Supine and upright views of the abdomen were performed. There is contrast in the colon The abdominal bowel gas pattern is normal. No air fluid levels are seen. No abnormal masses, calcifications, or o rganomegaly is seen. The visualized lower lungs are clear. No evidence of free intraperitoneal gas. The osseous structures are unremarkable. Vascular stent. Left-sided pacemaker CONCLUSION: Unremarkable bowel gas pattern with contrast in the colon Darron Lee MD on May 02, 2017 at 5:18 Board Certified Radiologist. This report was verified electronically.
[2017-05-02] MEDS: HYDROmorphone HCL PF 1 MG/ML VIAL IV PRN ×3 (06:34→21:56)
[2017-05-02 07:12] LABS: MEAN CELL VOLUME 79.5 FL (80.0-100.0); MEAN CORPUSCULAR HEMOGLOBIN 26.4 PG (27.0-34.0); MEAN CORPUSCULAR HGB CONC 33.3 % (32.0-36.0); PLATELET COUNT 68 TH/MM3 (150-450); RED BLOOD COUNT 3.02 MIL/MM3 (4.50-5.90); RED CELL DISTRIBUTION WIDTH 20.6 % (11.6-17.2); WHITE BLOOD COUNT 0.3 TH/MM3 (4.0-11.0)
[2017-05-02 07:15] LABS: HEMO FLAGS AUTO DIFF
[2017-05-02 07:22] LABS: BLOOD GAS BASE EXCESS -3.8 mmol/L (-2-2); BLOOD GAS CARBOXYHEMOGLOBIN 2.1 % (0-4); BLOOD GAS HCO3 20 mmol/L (22-26); BLOOD GAS O2 HGB SATURATION 95 % (90-100); BLOOD GAS OXYGEN CONTENT 11.9 Vol % (12.0-20.0); BLOOD GAS PCO2 31 mmHg (38-42); BLOOD GAS PO2 98 mmHg (61-120); BLOOD GAS TOTAL HGB 8.8 G/DL (12.0-16.0); CRITICAL VALUE NO; LITER FLOW 3 L/M; OXYGEN DEVICE NASAL CANNULA; TEMP CORR TO 98.6
[2017-05-02 07:23] LABS: DRAW SITE LT RADIAL; NUMBER OF ARTERIAL PUNCTURES 1; STAT YES; ULNAR PULSE PRESENT
[2017-05-02 07:45] LABS: BICARBONATE 22.6 MEQ/L (21.0-32.0); CALCIUM-PROTEIN CORRECTED 8.5 MG/DL (8.5-10.1); POTASSIUM 3.6 MEQ/L (3.5-5.1); TOTAL BILIRUBIN ADULT 1.3 MG/DL (0.2-1.0)
[2017-05-02 08:58] LABS: BANDS 21 % (0-6); CORRECTED NUCLEATED RBC 6 /100 WBC (0-0); POLYS (SEG NEUTROPHILS) 34 % (16-70); WBC DIFF SAMPLE 70
[2017-05-02] MEDS: DOCUSATE SODIUM 50 MG/SENNA 8.6 MG TAB PO SCH ×2 (09:00→21:00)
[2017-05-02] MEDS ORDERED: FERROUS SULFATE 325 MG (65 MG ELEMENTAL IRON) TAB PO SCH (09:00)
[2017-05-02] MEDS ORDERED: TIOTROPIUM BROMIDE 18 MCG INH INH SCH (09:00)
[2017-05-02 09:05] LABS: NEUTROPHIL # MANUAL DIFF 0.2 TH/MM3 (1.8-7.7); PLATELET ESTIMATE SMEAR LOW (NORMAL); PLATELET MORPHOLOGY NORMAL (NORMAL); SCAN/DIFF FINAL DIFF MANUAL; TOXIC GRANULATION 2+ (NORMAL)
[2017-05-02 09:06] LABS: OVALOCYTES 1+ (NORMAL); TEARDROP RBCS 1+ (NORMAL)
[2017-05-02] MEDS: SODIUM CHLORIDE 0.9% FLUSH 10 ML FLUSH IV FLUSH SCH ×2 (09:19→21:13)
--- NOTE | 2017-05-02 09:52 | PD.CONS ---
HPI History of Present Illness This is a 66 year old male with a PMH of Stage IV Esophageal CA on Chemo who is being followed by Dr. Fry as outpatient A-fib on Eliquis, HTN, COPD and CAD who presented to the ER with complaints of generalized weakness and SOB, and black/tarry stool x2-3 days. Hemoccult + on exam. hgb is 8.0, previously on 10.3. He hasn't had black stools since last night. Denies nausea, vomiting, abd pain, hematemesis, or hematochezia. He has dysphagia, and odynophagia due to mouth sores due to chemo and has lost more than 15 ibs in 2 weeks. He had Barium Swallow 04/30/17 unremarkable. He is declining PEG tube. 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 He is s/p Kcentra , Eliquis held. Currently receiving blood. (Flora Nicholson) PFSH Past Medical History PMH: Stage IV Esophageal CA on Chemo/Hospice, A-fib on Eliquis, HTN, COPD and CAD Past Surgical History PAST SURGICAL HISTORY: AAA Repair, AICD ([facility] [facility]), Right Chest Port (Flora Nicholson) Coded Allergies: No Known Allergies (Unverified , 05/01/17) Medications Current Medications Medications (Trade) Dose Ordered Sig/Eliecer Route Start Time Stop Time Status Last Admin Pantoprazole Sodium 80 mg/ Sodium Chloride 100 ml @ 10 mls/hr Q10H IV 05/01/17 20:15 05/01/17 23:48 (NS 1000 ml Inj) 1,000 ml @ 160 mls/hr Q6H15M IV 05/01/17 21:53 05/02/17 02:26 (NS Flush) 2 ml UNSCH PRN IV FLUSH 05/01/17 22:00 05/02/17 09:20 (NS Flush) 2 ml BID IV FLUSH 05/02/17 09:00 05/02/17 09:19 (Zofran Inj) 4 mg Q6H PRN IVP 05/01/17 22:00 05/02/17 05:03 (Tylenol) 650 mg Q6H PRN PO 05/01/17 22:00 ([place] 5-325 Mg) 1 tab Q4H PRN PO 05/01/17 22:00 (Dilaudid Pf Inj) 0.5 mg Q3H PRN IV 05/01/17 22:00 05/02/17 06:34 (Alejandra-Colace) 1 tab BID PO 05/02/17 09:00 (Milk Of Magnesia Liq) 30 ml Q12H PRN PO 05/01/17 22:00 (Senokot) 17.2 mg Q12H PRN PO 05/01/17 22:00 (Dulcolax Supp) 10 mg DAILY PRN RECTAL 05/01/17 22:00 Lactulose 30 ml 30 ml DAILY PRN PO 05/01/17 22:00 (Maxipime Inj/NS Inj) 100 ml @ 200 mls/hr Q24H IV 05/01/17 22:00 05/01/17 22:00 (Ventolin Hfa Inh) 2 puff Q6H PRN INH 05/01/17 23:45 05/02/17 09:19 (Aricept) 5 mg HS PO 05/02/17 21:00 (Antivert) 25 mg TID PRN PO 05/01/17 23:30 (Spiriva Inh) 18 mcg DAILY INH 05/02/17 09:00 05/02/17 09:18 Ferrous Sulfate 325 mg 325 mg DAILY PO 05/02/17 09:00 Sodium Chloride 250 ml @ 15 mls/hr ONCE ONCE IV 05/02/17 02:30 05/02/17 19:09 05/02/17 02:30 Norepinephrine Bitartrate 250 ml @ 0 mls/hr TITRATE IV 05/02/17 02:45 05/02/17 04:41 Vasopressin 40 units/Dextrose 100 ml @ 1.5 mls/hr Q24H IV 05/02/17 04:00 05/02/17 04:03 (Vancomycin Consult Pharmacy) 0 ml @ 0 mls/hr UNSCH OTHER 05/02/17 04:00 Hydrocortisone Sodium Succinate 100 mg 100 mg Q6HR IV PUSH 05/02/17 06:00 05/02/17 04:41 Metronidazole 100 ml @ 100 mls/hr Q6H IV 05/02/17 04:00 05/02/17 09:19 (Vancomycin Inj/ NS 250 ml Inj) 250 ml @ 250 mls/hr Q24H IV 05/03/17 04:00 Miscellaneous Information SPECIFIC LAB TO BE [facility]... ONCE ONCE .XX 05/05/17 03:45 05/05/17 03:46 (Vancomycin Inj/ NS 250 ml Inj) 250 ml @ 250 mls/hr Q24H IV 05/03/17 04:00 Miscellaneous Information SPECIFIC LAB TO BE MIKAELA... ONCE ONCE .XX 05/05/17 03:45 05/05/17 03:46 Family History No family hx of esophageal cancer Social History PAST SOCIAL HISTORY: Negative for alcohol, tobacco or drugs. (Flora Nicholson ) Review of Systems Constitutional: COMPLAINS OF: Fatigue, Dizziness Endocrine: DENIES: Polyuria Eyes: DENIES: Photosensitivity Respiratory: COMPLAINS OF: Shortness of breath, DENIES: Sputum production Cardiovascular: DENIES: Lower Extremity Edema Gastrointestinal: COMPLAINS OF: Black stools, Diarrhea, Difficulty Swallowing, Anorexia, Odynophagia, Heartburn, DENIES: Abdominal pain, Bloody stools, Constipation, Nausea, Vomiting, Swelling of Abdomen, Hematemesis Genitourinary: DENIES: Hematuria Musculoskeletal: COMPLAINS OF: Back pain Integumentary: DENIES: Jaundice Hematologic/lymphatic: DENIES: Bruising Immunologic/allergic: DENIES: Eczema Neurologic: DENIES: Abnormal gait Psychiatric: DENIES: Anxiety (Flora Nicholson) GI Exam Vitals I&O Vital Signs Date Time Temp Pulse Resp B/P Pulse Ox O2 Delivery O2 Flow Rate FiO2 05/02/17 06:00 68 05/02/17 04:00 73 05/02/17 04:00 97.8 73 25 70/45 100 05/02/17 02:12 97 Nasal Cannula 3.00 97 05/02/17 02:00 72 05/02/17 01:55 99 8.00 05/02/17 01:41 70/47 05/02/17 01:38 63/40 05/02/17 01:30 77/45 88 05/02/17 01:20 62/41 05/02/17 01:15 65/43 7/29/17 00:26 16 100 4 05/02/17 00:00 80 16 138/66 96 Nasal Cannula 4 05/01/17 20:09 18 96 Nasal Cannula 05/01/17 20:05 98.7 76 16 103/53 88 I/O 05/01/17 05/01/17 05/01/17 05/02/17 05/02/17 05/02/17 06:59 14:59 22:59 06:59 14:59 22:59 Intake Total 2200 ml Output Total 525 ml Balance 1675 ml Intake Oral 0 ml IV Total 1997 ml Packed Cells 203 ml Output Urine Total 525 ml # Bowel Movements 0 Imaging Last Impressions Abdomen X-Ray 05/02/17 0226 Signed Impressions: Service Date/Time: Tuesday, May 02, 2017 02:22 - CONCLUSION: Unremarkable bowel gas pattern with contrast in the colon Darron Lee MD Chest X-Ray 05/01/17 0000 Signed Impressions: Service Date/Time: Monday, May 01, 2017 22:16 - CONCLUSION: 1. Blunting of the right costophrenic angle characteristic of a small effusion or scarring. Minimal basal atelectasis. Rod Hernandez MD Laboratory Test 05/01/17 05/02/17 05/02/17 05/02/17 20:15 01:35 02:28 03:46 White Blood Count 0.3 TH/MM3 Red Blood Count 3.99 MIL/MM3 Hemoglobin 10.3 GM/DL 7.5 GM/DL Hematocrit 31.3 % 22.8 % Mean Corpuscular Volume 78.5 FL Mean Corpuscular Hemoglobin 25.9 PG Mean Corpuscular Hemoglobin 33.0 % Concent Red Cell Distribution Width 19.8 % Platelet Count 101 TH/MM3 Mean Platelet Volume 7.4 FL Neutrophils (%) (Auto) % Lymphocytes (%) (Auto) % Monocytes (%) (Auto) % Eosinophils (%) (Auto) % Basophils (%) (Auto) % Neutrophils # (Auto) TH/MM3 Lymphocytes # (Auto) TH/MM3 Monocytes # (Auto) TH/MM3 Eosinophils # (Auto) TH/MM3 Basophils # (Auto) TH/MM3 CBC Comment AUTO DIFF Differential Total Cells 50 Counted Neutrophils % (Manual) 26 % Band Neutrophils % 8 % Lymphocytes % 56 % Monocytes % 10 % Neutrophils # (Manual) 0.1 TH/MM3 Nucleated Red Blood Cells 4 /100 WBC Differential Comment FINAL DIFF MANUAL Platelet Estimate LOW Platelet Morphology Comment NORMAL Ovalocytes 2+ Keratocytes OCC Prothrombin Time 14.0 SEC 13.6 SEC Prothromb Time International 1.3 RATIO 1.2 RATIO Ratio Activated Partial 33.1 SEC Thromboplast Time Sodium Level 134 MEQ/L Potassium Level 4.7 MEQ/L Chloride Level 101 MEQ/L Carbon Dioxide Level 25.2 MEQ/L Anion Gap 8 MEQ/L Blood Urea Nitrogen 45 MG/DL Creatinine 1.48 MG/DL Estimat Glomerular Filtration 48 ML/MIN Rate Random Glucose 140 MG/DL Calcium Level 8.0 MG/DL Total Bilirubin 1.3 MG/DL Aspartate Amino Transf 25 U/L (AST/SGOT) Alanine Aminotransferase 23 U/L (ALT/SGPT) Alkaline Phosphatase 69 U/L Total Protein 5.8 GM/DL Albumin 2.6 GM/DL Blood Type A POSITIVE A POSITIVE A POSITIVE Antibody Screen NEGATIVE Blood Bank Comment Crossmatch Irradiated/Leukocyte-Reduced RBC Test 05/02/17 05/02/17 05:25 07:06 White Blood Count 0.3 TH/MM3 Red Blood Count 3.02 MIL/MM3 Hemoglobin 8.0 GM/DL Hematocrit 24.0 % Mean Corpuscular Volume 79.5 FL Mean Corpuscular Hemoglobin 26.4 PG Mean Corpuscular Hemoglobin 33.3 % Concent Red Cell Distribution Width 20.6 % Platelet Count 68 TH/MM3 Mean Platelet Volume 7.7 FL Neutrophils (%) (Auto) % Lymphocytes (%) (Auto) % Monocytes (%) (Auto) % Eosinophils (%) (Auto) % Basophils (%) (Auto) % Neutrophils # (Auto) TH/MM3 Lymphocytes # (Auto) TH/MM3 Monocytes # (Auto) TH/MM3 Eosinophils # (Auto) TH/MM3 Basophils # (Auto) TH/MM3 CBC Comment AUTO DIFF Differential Total Cells 70 Counted Neutrophils % (Manual) 34 % Band Neutrophils % 21 % Lymphocytes % 34 % Monocytes % 10 % Neutrophils # (Manual) 0.2 TH/MM3 Nucleated Red Blood Cells 6 /100 WBC Differential Comment FINAL DIFF MANUAL Toxic Granulation 2+ Platelet Estimate LOW Platelet Morphology Comment NORMAL Basophilic Stippling MOD Tear Drop Cells 1+ Ovalocytes 1+ Sodium Level 140 MEQ/L Potassium Level 3.6 MEQ/L Chloride Level 107 MEQ/L Carbon Dioxide Level 22.6 MEQ/L Anion Gap 10 MEQ/L Blood Urea Nitrogen 41 MG/DL Creatinine 1.35 MG/DL Estimat Glomerular Filtration 53 ML/MIN Rate Random Glucose 130 MG/DL Calcium Level 7.0 MG/DL Protein Corrected Calcium 8.5 MG/DL Total Bilirubin 1.3 MG/DL Aspartate Amino Transf 18 U/L (AST/SGOT) Alanine Aminotransferase 16 U/L (ALT/SGPT) Alkaline Phosphatase 49 U/L Total Protein 4.4 GM/DL Albumin 1.9 GM/DL Blood Gas Puncture Site LT RADIAL Blood Gas Patient Temperature 98.6 Blood Gas HCO3 20 mmol/L Blood Gas Base Excess -3.8 mmol/L Blood Gas Oxygen Saturation 95 % Arterial Blood pH 7.42 Arterial Blood Partial 31 mmHg Pressure CO2 Arterial Blood Partial 98 mmHg Pressure O2 Arterial Blood Oxygen Content 11.9 Vol % Arterial Blood 2.1 % Carboxyhemoglobin Arterial Blood Methemoglobin 1.0 % Blood Gas Hemoglobin 8.8 G/DL Oxygen Delivery Device NASAL CANNULA Blood Gas Liter Flow 3 L/M Date/Time Procedure Status Source Growth 05/01/17 23:54 Aerobic Blood Culture Received Blood Peripheral Pending 05/01/17 23:54 Anaerobic Blood Culture Received Blood Peripheral Pending Physical Examination HEENT: normocephalic; atraumatic; no jaundice. NECK: Neck is supple, no JVD, no lymphadenopathy. CHEST: Chest is clear to auscultation and percussion. CARDIAC: Regular rate and rhythm with no murmur gallop or rubs. ABDOMEN: Soft, nondistended, nontender; no hepatosplenomegaly; bowel sounds are present in all four quadrants. EXTREMITIES: No clubbing, cyanosis, or edema. SKIN: pale DEEP [employer]SEM[employer]ER: No focal deficits; alert and oriented times three. (Flora Nicholson) Assessment and Plan Plan - GI Bleed, black tarry stools for few days, heme (+) stools, anemia: h/o A- fib on Eliquis, hgb today 8.0 previously 10.3 started on Protonix gtt in ER, will continue. S/p Kcentra, Eliquis on hold Receiving blood. No more black stools since last night. 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 - Hypotension- Secondary to above, IV, blood transfusion, pressors - Neutropenia - IVON - dysphagia, and odynophagia due to mouth sores due to chemo and has lost more than 15 ibs in 2 weeks. He had Barium Swallow 04/30/17 unremarkable. He is declining PEG tube. - A-fib Eliquis held. - Stage IV Esophageal CA on Chemo, followed by Dr. Fry as outpatient - Wt loss, malnourished- Refusing PEG tube - Mouth sores- Diflucan, magic mouth wash ordered Plan: - HORACIO - EGD on Thursday if stable, he is on multiple pressors - Obtain consents - Cont. PPI - Cont. to hold Eliquis - Monitor hh - Transfuse as needed - Notify GI for active bleeding - Consider PEG tube - Supportive care - Patient seen and examined by Dr. King and myself and this note is written on his behalf. (Flora Nicholson) Physician Comments Patient seen and examined Agree with above Continue with current supportive care Monitor labs EGD on Thursday with possible PEG placement (Ad King MD) Flroa Nicholson May 02, 2017 09:51 Ad King MD May 02, 2017 18:30
[2017-05-02] MEDS ORDERED: FLUCONAZOLE 200 MG PREMIX BAG 100 ML IV SCH (12:00)
--- NOTE | 2017-05-02 15:17 | MB ---
cc: YO MELLO DATE OF CONSULTATION: 05/02/2017. REASON FOR CONSULTATION: Patient with esophageal carcinoma status post chemotherapy with severe neutropenia and other underlying issues. PATIENT PROFILE: The patient is a 66-year white male. He is single and was once. He has three daughters. He lives with his girlfriend. He stopped smoking in 2007 and smoked half a pack of cigarettes per day. He stopped drinking in 2007 and his drinking at that time was binge drinking. He is on disability. 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 HISTORY OF PRESENT ILLNESS: The patient's history dates back to 2012 when he was treated in the [place], [place] for an esophageal cancer. He states that he received radiation and did not receive surgery. It is not clear to me as to the date of the original diagnosis or what was done. He states that he entered a remission and was well until recently, when he presented with dysphagia and was found to have a mass in the esophagus on upper endoscopy. A biopsy dated 02/13/2017 reads, "Invasive poorly differentiated adenocarcinoma exhibiting signet ring features". This was compared to the previous biopsy from [place] and was similar. A recent PET scan showed recurrent disease at the site of his original tumor. There is also increased uptake in the left infrahilar area and posterior to the heart with an SUV of 10.6 and a 1.7 cm adrenal mass with an SUV of 13.8 (as per notes from Dr. Jaren Fry). The patient was therefore felt to have metastatic esophageal cancer. He has been receiving chemotherapy with FOLFOX with last treatment on 04/21. He became weak complaining of severe dysphagia. When he presented to the hospital on 05/01, hemoglobin 10.3, white count 0.3, platelets 101,000. On 05/02, today, hemoglobin 8, white count 0.3 and platelets 68,000, neutrophils 0.2. He is on antibiotics. He remains afebrile. He feels stronger. He still has significant dysphagia. He has profound generalized weakness. PAST SURGICAL HISTORY: 1. Abdominal aortic aneurysm repair. 2. Esophageal biopsy establishing diagnosis of esophageal cancer. The date is not clear to me. 3. Recurrence of esophageal cancer currently stage IV with most recent biopsy 02/13/2017. PAST MEDICAL HISTORY: 1. Stage IV adenocarcinoma of the esophagus with most recent chemotherapy 04/21/2017. 2. History of atrial fibrillation. 3. History of heart failure. 4. Coronary artery disease. 5. Type 2 diabetes. 6. Hypertension. 7. Peripheral vascular disease. 8. Defibrillator and pacemaker placement.. 9. COPD. 10. Abdominal aortic aneurysm repair. ALLERGIES: NO KNOWN ALLERGIES. MEDICATIONS PRIOR TO ADMISSION: 1. Proventil. 2. Apixaban. 3. Lipitor. 4. Donepezil. 5. Iron. 6. Lasix. 7. Ibuprofen. 8. Losartan. 9. Meclizine. 10. Metoprolol. 11. Omeprazole. 12. Pyridoxine. 13. Zantac. 14. Sotalol. 15. Spiriva. 16. Compazine. REVIEW OF SYSTEMS: Notable for profound weakness, dysphasia. Pain in the back of throat esophageal area. He has exertional shortness of breath. A rare palpitation. The rest of the review of systems is otherwise unremarkable. PHYSICAL EXAMINATION: GENERAL: The physical exam reveals a thin chronically ill-appearing male HEAD, EYES, EARS, NOSE, THROAT: Head is normocephalic. The sclerae and conjunctivae are normal. Oropharynx reveals severe thrush throughout the oral cavity. LYMPHATIC: There is no cervical, supraclavicular, axillary or inguinal adenopathy. HEART: Regular rhythm. LUNGS: Clear. ABDOMEN: Abdomen soft. No hepatosplenomegaly or masses. EXTREMITIES: Trace edema. MUSCULOSKELETAL: Muscle wasting. NEUROLOGIC: No focal weakness. Cognition and affect are normal. SKIN: Normal. ASSESSMENT: The patient is a 66-year-old male who has stage IV esophageal cancer. This is an incurable disease. He is profoundly debilitated, both from the disease and from the chemotherapy. RECOMMENDATIONS: 1. I recommend continuing IV fluids and antibiotics, monitoring the CBC and platelet count and keeping his hemoglobin adequate. 2. I spoke to him at length about CPR with the nurse, mario Hawkins. This gentleman has an incurable illness. He does not want cardiopulmonary resuscitation. I have written for a NO CODE. 3. He has severe thrush. The plan will be to begin fluconazole. I am going to stop the Aricept as there can be an interaction, and I do not know why he would require Aricept at the present time. 4. PT has been ordered every 6 hours. I will check to see why this has been done as it does not appear to be necessary. He received Eliquis and the impact of the Eliquis will resolve over the next 48 hours. 5. We spoke about further treatment. I believe he is interested in treatment, but he wants to avoid significant toxicities. This would be easily done simply by reducing doses. He will take this up with his medical oncologist. MD JOSE Nichole/HERI /11:45 AM /2:54 PM MTDD
--- NOTE | 2017-05-02 15:23 | PD.ID.CON ---
History of Present Illness Service ID Consult Requested By Reason for Consult Evaluation and Mment of Septic shock with Pneumonia. Primary Care Physician Anshu Chicas M.D. Diagnoses: History of Present Illness Most of the history was from medical records, patient was exhausted and sleepy. Will attempt again in am. is a 66 y/o CM with a PMH of Stage IV Esophageal CA on palliative chemotherapy using an infusaport, who follows with Dr. Fry as outpatient A-fib on Eliquis, HTN, COPD and CAD who presented to the ER with complaints of generalized weakness and SOB, and black/tarry stool x2-3 days. Hemoccult + on exam. hgb is 8.0, previously on 05/01 10.3. He hasn't had black stools since last night. Denies nausea, vomiting, abd pain, hematemesis, or hematochezia. He has dysphagia, and odynophagia due to mouth sores due to chemo and has lost more than 15 lbs in 2 weeks. He had Barium Swallow 04/30/17 unremarkable. He is declining PEG tube. EGD on (02/13/17) ---> Ulcerated mass anastomotic site / possible recurrence-biopsy retained bile in stomach-suctioned s/p gastric pull up, Retroflexed views revealed a hiatal hernia, Bx revealed esophageal mucosal with invasive poorly differentiated adenocarcinoma exhibiting signet ring features. He is s/p Kcentra, Eliquis held. Hospital course: patient is in the ICU on NC, UO good (condom cath in place). Levophed dose decreased from earlier today and also remains on vasopressin. s/p 2 units of PRBC. Complains of chest pain on inspiration and also back pain. No fevers since admission. Blood cultures and other cultures drawn and pt started on empiric antibiotics as pt severely neutropenic. oncology has seen pt and offered pt to consider DNR (per my d/w [facility]). Patient also has been seen by GI services and plan for UGI workup on Thursday per d.w MAHESH Amjose. ID consulted for evaluation and Mment of Septic shock and ? pneumonia. Review of Systems ROS Limitations: Clinical Condition Gastrointestinal: COMPLAINS OF: Black stools Sleepy and exhausted, did not want to participate at present time. Past Family Social History Allergies: Coded Allergies: No Known Allergies (Unverified , 05/01/17) Past Medical History Stage IV Esophageal CA on Chemo/Hospice, A-fib on Eliquis, HTN, COPD CAD Past Surgical History AAA Repair, AICD ([facility]), Right Chest Port Reported Medications Reported Meds & Active Scripts Active Reported Iron (Ferrous Gluconate) 27 Mg Tab 65 Mg PO DAILY Sotalol (Sotalol HCl) 120 Mg Tab 120 Mg PO BID Donepezil 5 Mg Tab 5 Mg PO HS Zantac (Ranitidine HCl) 150 Mg Tab 150 Mg PO DAILY [Prochlorper] 10 Mg PO DIRECTED Meclizine (Meclizine HCl) 25 Mg Tab 25 Mg PO TID PRN Meclizine 25 (Meclizine HCl) 25 Mg Tab Oxycodone-Acetaminophen 5-325 mg Tab 1 Tab PO Q4H PRN Proventil Hfa 6.7 GM Inh (Albuterol Sulfate) 90 Mcg/Act Aer 2 Puff INH Q6H PRN Motrin Ib (Ibuprofen) 200 Mg Tablet 600 Mg PO Q8HR PRN Omeprazole 40 Mg Cap 40 Mg PO DAILY Vitamin D-3 (Cholecalciferol) 1,000 Unit Tab 1,000 Units PO DAILY Spiriva Handihaler (Tiotropium Inh) 18 Mcg Cap 18 Mcg INH DAILY 1 capsule = 18 mcg Metoprolol Tartrate 25 Mg Tab 25 Mg PO BID Losartan (Losartan Potassium) 25 Mg Tab 25 Mg PO DAILY Lipitor (Atorvastatin Calcium) 20 Mg Tab 20 Mg PO HS Lasix (Furosemide) 20 Mg Tab 20 Mg PO BID B6 Natural (Pyridoxine HCl) 100 Mg Tab 1 Tab PO DAILY Eliquis (Apixaban) 5 Mg Tab 5 Mg PO BID Active Ordered Medications Current Medications Medications (Trade) Dose Ordered Sig/Eliecer Route Start Time Stop Time Status Last Admin Pantoprazole Sodium 80 mg/ Sodium Chloride 100 ml @ 10 mls/hr Q10H IV 05/01/17 20:15 05/01/17 23:48 (NS 1000 ml Inj) 1,000 ml @ 160 mls/hr Q6H15M IV 05/01/17 21:53 05/02/17 12:28 (NS Flush) 2 ml UNSCH PRN IV FLUSH 05/01/17 22:00 05/02/17 09:20 (NS Flush) 2 ml BID IV FLUSH 05/02/17 09:00 05/02/17 09:19 (Zofran Inj) 4 mg Q6H PRN IVP 05/01/17 22:00 05/02/17 05:03 (Tylenol) 650 mg Q6H PRN PO 05/01/17 22:00 ([place] 5-325 Mg) 1 tab Q4H PRN PO 05/01/17 22:00 (Dilaudid Pf Inj) 0.5 mg Q3H PRN IV 05/01/17 22:00 05/02/17 10:41 (Alejandra-Colace) 1 tab BID PO 05/02/17 09:00 (Milk Of Magnesia Liq) 30 ml Q12H PRN PO 05/01/17 22:00 (Senokot) 17.2 mg Q12H PRN PO 05/01/17 22:00 (Dulcolax Supp) 10 mg DAILY PRN RECTAL 05/01/17 22:00 Lactulose 30 ml 30 ml DAILY PRN PO 05/01/17 22:00 (Maxipime Inj/NS Inj) 100 ml @ 200 mls/hr Q24H IV 05/01/17 22:00 05/01/17 22:00 (Ventolin Hfa Inh) 2 puff Q6H PRN INH 05/01/17 23:45 05/02/17 09:19 (Antivert) 25 mg TID PRN PO 05/01/17 23:30 Tiotropium Freeman 18 mcg 18 mcg DAILY INH 05/02/17 09:00 05/02/17 09:18 Sodium Chloride 250 ml @ 15 mls/hr ONCE ONCE IV 05/02/17 02:30 05/02/17 19:09 05/02/17 02:30 Norepinephrine Bitartrate 250 ml @ 0 mls/hr TITRATE IV 05/02/17 02:45 05/02/17 14:45 Vasopressin 40 units/Dextrose 100 ml @ 1.5 mls/hr Q24H IV 05/02/17 04:00 05/02/17 04:03 (Vancomycin Consult Pharmacy) 0 ml @ 0 mls/hr UNSCH OTHER 05/02/17 04:00 Hydrocortisone Sodium Succinate 100 mg 100 mg Q6HR IV PUSH 05/02/17 06:00 05/02/17 12:28 Metronidazole 100 ml @ 100 mls/hr Q6H IV 05/02/17 04:00 05/02/17 09:19 (Vancomycin Inj/ NS 250 ml Inj) 250 ml @ 250 mls/hr Q24H IV 05/03/17 04:00 Miscellaneous Information SPECIFIC LAB TO BE [facility]... ONCE ONCE .XX 05/05/17 03:45 05/05/17 03:46 (Vancomycin Inj/ NS 250 ml Inj) 250 ml @ 250 mls/hr Q24H IV 05/03/17 04:00 Miscellaneous Information SPECIFIC LAB TO BE [facility]... ONCE ONCE .XX 05/05/17 03:45 05/05/17 03:46 (Diflucan 200 Mg Premix Bag) 100 ml @ 100 mls/hr Q24H IV 05/02/17 12:00 05/02/17 12:28 Family History reviewed Social History reviewed. Physical Exam Vital Signs Vital Signs Date Time Temp Pulse Resp B/P Pulse Ox O2 Delivery O2 Flow Rate FiO2 05/02/17 06:00 68 05/02/17 04:00 73 05/02/17 04:00 97.8 73 25 70/45 100 05/02/17 02:12 97 Nasal Cannula 3.00 97 05/02/17 02:00 72 05/02/17 01:55 99 8.00 05/02/17 01:41 70/47 05/02/17 01:38 63/40 05/02/17 01:30 77/45 88 05/02/17 01:20 62/41 05/02/17 01:15 65/43 05/02/17 00:26 16 100 4 05/02/17 00:00 80 16 138/66 96 Nasal Cannula 4 05/01/17 20:09 18 96 Nasal Cannula 05/01/17 20:05 98.7 76 16 103/53 88 Physical Exam GENERAL: This is a well-nourished, well-developed patient, in no apparent distress. SKIN: No rashes, ecchymoses or lesions. Cool and dry. HEAD: Atraumatic. Normocephalic. No temporal or scalp tenderness. EYES: Pupils equal round and reactive. Extraocular motions intact. No scleral icterus. No injection or drainage. ENT: Nose without bleeding, purulent drainage or septal hematoma. Throat without erythema, tonsillar hypertrophy or exudate. Uvula midline. Airway patent. NECK: Trachea midline. Supple, nontender, no meningeal signs. CARDIOVASCULAR: Regular rate and rhythm without murmurs, gallops, or rubs. RESPIRATORY: Clear to auscultation. Breath sounds equal bilaterally but decreased in the bases. GASTROINTESTINAL: Abdomen soft, non-tender, nondistended. No hepato-splenomegaly , or palpable masses. MUSCULOSKELETAL: Extremities without clubbing, cyanosis, or edema. No joint tenderness, effusion, or edema noted. No calf tenderness. Negative Homans sign bilaterally. NEUROLOGICAL: Awake and alert. Grossly non focal Psych: cooperative, flat affect Port site with no e.o infection. Laboratory Laboratory Tests Test 05/01/17 05/02/17 05/02/17 05/02/17 20:15 01:35 02:28 03:46 White Blood Count 0.3 Red Blood Count 3.99 Hemoglobin 10.3 7.5 Hematocrit 31.3 22.8 Mean Corpuscular Volume 78.5 Mean Corpuscular Hemoglobin 25.9 Mean Corpuscular Hemoglobin 33.0 Concent Red Cell Distribution Width 19.8 Platelet Count 101 Mean Platelet Volume 7.4 Neutrophils (%) (Auto) Lymphocytes (%) (Auto) Monocytes (%) (Auto) Eosinophils (%) (Auto) Basophils (%) (Auto) Neutrophils # (Auto) Lymphocytes # (Auto) Monocytes # (Auto) Eosinophils # (Auto) Basophils # (Auto) CBC Comment AUTO DIFF Differential Total Cells 50 Counted Neutrophils % (Manual) 26 Band Neutrophils % 8 Lymphocytes % 56 Monocytes % 10 Neutrophils # (Manual) 0.1 Nucleated Red Blood Cells 4 Differential Comment FINAL DIFF MANUAL Platelet Estimate LOW Platelet Morphology Comment NORMAL Ovalocytes 2+ Keratocytes OCC Prothrombin Time 14.0 13.6 Prothromb Time International 1.3 1.2 Ratio Activated Partial 33.1 Thromboplast Time Sodium Level 134 Potassium Level 4.7 Chloride Level 101 Carbon Dioxide Level 25.2 Anion Gap 8 Blood Urea Nitrogen 45 Creatinine 1.48 Estimat Glomerular Filtration 48 Rate Random Glucose 140 Calcium Level 8.0 Total Bilirubin 1.3 Aspartate Amino Transf 25 (AST/SGOT) Alanine Aminotransferase 23 (ALT/SGPT) Alkaline Phosphatase 69 Total Protein 5.8 Albumin 2.6 Blood Type A POSITIVE A POSITIVE A POSITIVE Antibody Screen NEGATIVE Blood Bank Comment Crossmatch Irradiated/Leukocyte-Reduced RBC Test 05/02/17 05/02/17 05:25 07:06 White Blood Count 0.3 Red Blood Count 3.02 Hemoglobin 8.0 Hematocrit 24.0 Mean Corpuscular Volume 79.5 Mean Corpuscular Hemoglobin 26.4 Mean Corpuscular Hemoglobin 33.3 Concent Red Cell Distribution Width 20.6 Platelet Count 68 Mean Platelet Volume 7.7 Neutrophils (%) (Auto) Lymphocytes (%) (Auto) Monocytes (%) (Auto) Eosinophils (%) (Auto) Basophils (%) (Auto) Neutrophils # (Auto) Lymphocytes # (Auto) Monocytes # (Auto) Eosinophils # (Auto) Basophils # (Auto) CBC Comment AUTO DIFF Differential Total Cells 70 Counted Neutrophils % (Manual) 34 Band Neutrophils % 21 Lymphocytes % 34 Monocytes % 10 Neutrophils # (Manual) 0.2 Nucleated Red Blood Cells 6 Differential Comment FINAL DIFF MANUAL Toxic Granulation 2+ Platelet Estimate LOW Platelet Morphology Comment NORMAL Basophilic Stippling MOD Tear Drop Cells 1+ Ovalocytes 1+ Sodium Level 140 Potassium Level 3.6 Chloride Level 107 Carbon Dioxide Level 22.6 Anion Gap 10 Blood Urea Nitrogen 41 Creatinine 1.35 Estimat Glomerular Filtration 53 Rate Random Glucose 130 Calcium Level 7.0 Protein Corrected Calcium 8.5 Total Bilirubin 1.3 Aspartate Amino Transf 18 (AST/SGOT) Alanine Aminotransferase 16 (ALT/SGPT) Alkaline Phosphatase 49 Total Protein 4.4 Albumin 1.9 Blood Gas Puncture Site LT RADIAL Blood Gas Patient Temperature 98.6 Blood Gas HCO3 20 Blood Gas Base Excess -3.8 Blood Gas Oxygen Saturation 95 Arterial Blood pH 7.42 Arterial Blood Partial 31 Pressure CO2 Arterial Blood Partial 98 Pressure O2 Arterial Blood Oxygen Content 11.9 Arterial Blood 2.1 Carboxyhemoglobin Arterial Blood Methemoglobin 1.0 Blood Gas Hemoglobin 8.8 Oxygen Delivery Device NASAL CANNULA Blood Gas Liter Flow 3 Date/Time Procedure Status Source Growth 05/01/17 23:54 Aerobic Blood Culture - Preliminary Resulted Blood Peripheral NO GROWTH IN 1 DAY 05/01/17 23:54 Anaerobic Blood Culture - Preliminary Resulted Blood Peripheral NO GROWTH IN 1 DAY Result Diagram: 05/02/17 0525 05/02/17 0525 Imaging Last Impressions Abdomen X-Ray 05/02/17 0226 Signed Impressions: Service Date/Time: Tuesday, May 02, 2017 02:22 - CONCLUSION: Unremarkable bowel gas pattern with contrast in the colon Darron Lee MD Chest X-Ray 05/01/17 0000 Signed Impressions: Service Date/Time: Monday, May 01, 2017 22:16 - CONCLUSION: 1. Blunting of the right costophrenic angle characteristic of a small effusion or scarring. Minimal basal atelectasis. Rod Hernandez MD Assessment and Plan Assessment and Plan Possible Sepsis related Septic Shock (patient profoundly neutropenic, undergoing palliative chemotherapy, may not mount typical SIRS reaction) Severe Neutropenia and Pancytopenia Hypotension could additionally be from GI bleed. Possible Gram negative bacteremia in setting of esophageal cancer and GI bleed related mucosal translocation. ? aspiration pneumonia. Rule out Port related bacteremia. Stage 4 esophageal cancer. Immune compromised on Chemotherapy ? recurrence. Recs: Continue Cefepime increase dose to cover PSAE. Renal adjust. Continue Vanco IV (target 15-20) for possible bacteremia. Continue Flagyl IV (may change to oral) after GI workup on Thursday. Continue Diflucan IV (if overnight any change in clinical condition consider Micafungin IV: at risk for fungemia) CT chest angiogram ? aspiration PNA, ? PE in cancer pt. CT Abd/pelvis with contrast IV and oral (h/o AAA repair, r/o E-G fistula) Follow cultures Follow clinically. Port culture if not done d.w RN. d/w . Josie Suggs MD May 02, 2017 15:23
[2017-05-02] MEDS: PANTOPRAZOLE INJ 80 MG in SODIUM CHLORIDE 0.9% INJ 100 ML IV SCH (15:34)
--- NOTE | 2017-05-02 16:05 | HHI.CCPN ---
Subjective Remarks/Hospital Course 66-year-old male with a Stage IV Esophageal cancer treated with chemotherapy, atrial fibrillation on Eliquis, hypertension, COPD, coronary artery disease presented to the ER with complaints of generalized weakness and shortness of breath, and also reports black/tarry stool x 2-3 days. Denies fever, chills, cough or chest pain. Follows w/ Dr. Fry as outpatient, last seen on 04/28/17 w / complaints of dysphagia, referred for Barium Swallow and GI eval w/ Dr. King, Barium Swallow 04/30/17 unremarkable. On arrival he was hemodynamically stable with hemoglobin 10.7. cat hooker today he was found to be hypotensive with hemoglobin dropped to 7.5 and is now transferred to ICU. Critical care consult was requested and assistance to manage hypotension and GI bleed. His white count is also found to be 0.3 and neutrophils 0.1. Objective Vital Signs Date Time Temp Pulse Resp B/P Pulse Ox O2 Delivery O2 Flow Rate FiO2 05/02/17 06:00 68 05/02/17 04:00 97.8 25 70/45 100 05/02/17 02:12 Nasal Cannula 3.00 97 Result Diagram: 05/02/17 0525 05/02/17 0525 Other Results Laboratory Tests Test 05/02/17 07:06 Blood Gas Puncture Site LT RADIAL Blood Gas Patient Temperature 98.6 Blood Gas HCO3 20 mmol/L (22-26) Blood Gas Base Excess -3.8 mmol/L (-2-2) Blood Gas Oxygen Saturation 95 % (90-100) Arterial Blood pH 7.42 (7.380-7.420) Arterial Blood Partial 31 mmHg (38-42) Pressure CO2 Arterial Blood Partial 98 mmHg Pressure O2 (61-120) Arterial Blood Oxygen Content 11.9 Vol % (12.0-20.0) Arterial Blood 2.1 % (0-4) Carboxyhemoglobin Arterial Blood Methemoglobin 1.0 % (0-2) Blood Gas Hemoglobin 8.8 G/DL (12.0-16.0) Oxygen Delivery Device NASAL CANNULA Blood Gas Liter Flow 3 L/M Objective Remarks GENERAL: Extremely cachectic chronically ill-appearing male SKIN: Warm and dry. HEAD: Normocephalic. EYES: No scleral icterus. No injection or drainage. NECK: Supple, trachea midline. No JVD or lymphadenopathy. CARDIOVASCULAR: Regular rate and rhythm without murmurs, gallops, or rubs. RESPIRATORY: Breath sounds equal bilaterally. No accessory muscle use. GASTROINTESTINAL: Abdomen soft, non-tender, nondistended. MUSCULOSKELETAL: No cyanosis, or edema. EXTREMITIES: Follows commands, no clubbing or edema Procedures CT angiogram-incentive for esophageal cancer rupture CT abdomen pelvis-center for gastroenteric fistula A/P Assessment and Plan GI bleed - Protonix drip -NPO - GI consult - Monitor H&H every 12 hours and transfuse for hemoglobin less than 7 if indicated Anemia - Blood loss - Transfuse 2 units of PRBC -Follow-up repeat CBC Neutropenic sepsis - Vancomycin cefepime and Flagyl - ID consult-Dr. Suggs - Hematology consult - Neupogen ? - Follow-up cultures - Levophed and vasopressin to keep MAP above 65 Esophageal cancer - Stage IV - Management per Hematology/oncology -F/U CT angio rule out esophageal cancer rupture -F/U CT abdomen and pelvis-rule out gastroenteric fistula Acute kidney injury - Dehydration - Strict I's and O - IV fluids resuscitation - Monitor trend of creatinine and electrolytes DVT GI prophylaxis - Teds SCDs - No pharmacological DVT prophylaxis due to active GI bleed - Protonix drip Critical Care: my billing statement This patient remains critically ill with one or more organ systems which are or may become a threat to life. I have spent in excess of 30 minutes discontinuously in the care and management of this patient. This time is exclusive of procedures, and includes, but is not limited to, evaluation of the patient, review of the medical record, discussions with family, consultants, nursing staff, or respiratory therapy, and documentation in the medical record. Physician Trish Ley MD May 02, 2017 16:05
[2017-05-02] MEDS ORDERED: DIATRIZOATE MEGLUM/DIATRIZOATE SOD 9 ML CUP PO ONE (16:15)
[2017-05-02 17:07] LABS: HEMATOCRIT 28.2 % (39.0-51.0)
[2017-05-02 17:11] LABS: REVIEW FLAG FINAL
[2017-05-02] MEDS: NYSTATIN SUSP 500,000 U/5 ML CUP SWISH-SWAL SCH ×2 (17:24→21:13)
[2017-05-02] MEDS ORDERED: IOHEXOL 350 MG/ML 10 ML VIAL (for RAD DIAG) IV ONE (19:24)
--- NOTE | 2017-05-02 19:33 | RADRPT ---
EXAM DATE/TIME: 05/02/2017 19:07 [facility] COMPARISON: ABDOMEN FLAT & UPRIGHT, May 02, 2017, 2:22. CHEST SINGLE AP, May 01, 2017, 22:16. INDICATIONS : Shortness of breath. Currently on chemo for esophageal cancer. IV CONTRAST: 73 cc Omnipaque 350 (iohexol) IV ; Cumulative dose for multiple exams. RADIATION DOSE: 8.12 CTDIvol (mGy) MEDICAL HISTORY : Cardiovascular disease. Aneurysm, abdominal. Gastroesophageal reflux disease.Hypertension. Esophageal cancer. SURGICAL HISTORY : Abdominal aortic aneurysm repair. Defibrillator. ENCOUNTER: Initial ACUITY: 1 day PAIN SCALE: 0/10 LOCATION: Bilateral chest TECHNIQUE: Volumetric scanning of the chest was performed using a pulmonary embolism protocol MIP images were re constructed. Using automated exposure control and adjustment of the mA and/or kV according to patien t size, radiation dose was kept as low as reasonably achievable to obtain optimal diagnostic quality images. DICOM format image data is available electronically for review and comparison. Follow-up recommendations for incidentally detected pulmonary nodules are based at a minimum on nodul e size and patient risk factors according to Fleischner Society Guidelines. FINDINGS: PULMONARY ARTERIES: No filling defects are seen in the pulmonary arteries through the segmental level. LUNGS: Multifocal areas of airspace of passing located in the anterior right upper lung, anterior lateral le ft midlung, and left lower lobe. No air bronchograms seen in these multifocal opacities. There is s ome consolidation of the opacity in the left lower lung. PLEURAE: Moderate-sized left pleural effusion measuring up to 2.2 cm in thickness. MEDIASTINUM: There are a few enlarged middle mediastinal lymph nodes measuring up to 1.9 cm. Subcarinal lymph nod e measures 2.4 cm. Esophagectomy with intrathoracic stomach on the right side. CONCLUSION: 1. The study is negative for pulmonary embolism. 2. Multifocal bilateral airspace opacities without air bronchograms in greatest concentration in size in the left lower lobe. There is also a moderate size left pleural effusion. History of esophageal cancer. Differential considerations include both multifocal pneumonia and metastatic disease. Tyler Smyth MD on May 02, 2017 at 19:26 Board Certified Radiologist. This report was verified electronically.
--- NOTE | 2017-05-02 19:41 | RADRPT ---
EXAM DATE/TIME: 05/02/2017 19:07 [place] COMPARISON: C containing calcification. The left adrenal gland underwent biopsy in February 2017 T NEEDLE BIOPSY ADRE NAL, LEFT, February 09, 2017, 8:35. INDICATIONS : History of AAA repair and admitted with GI bleed. IV CONTRAST: 73 cc Omnipaque 350 (iohexol) IV ; Cumulative dose for multiple exams. ORAL CONTRAST: Prescribed oral contrast ingested. RADIATION DOSE: 10.64 CTDIvol (mGy) MEDICAL HISTORY : Cardiovascular disease. Gastroesophageal reflux disease. Aneurysm, abdominal.Hypertension. Esophageal cancer. SURGICAL HISTORY : Defibrillator. ENCOUNTER: Initial ACUITY: 1 day PAIN SCALE: 2/10 LOCATION: Bilateral abdomen TECHNIQUE: Volumetric scanning of the abdomen and pelvis was performed. Using automated exposure control and ad justment of the mA and/or kV according to patient size, radiation dose was kept as low as reasonably achievable to obtain optimal diagnostic quality images. DICOM format image data is available electro nically for review and comparison. FINDINGS: History esophageal cancer with intrathoracic stomach on the right side. A no dilated loops of small or large bowel. Oral contrast is present in the colon. There are several loops of small bowel in th e right lower quadrant which demonstrate concentric wall thickening with wall thickness measuring up to 8 mm. A no evidence of free fluid. Diffuse fatty change the liver. No focal lesions in the live r. No calcified gallstones. The spleen and kidneys are intact. There is a low density nodule in th e lateral limb of the left adrenal gland; left adrenal gland underwent biopsy in February 2017 (poorly dif ferentiated adenocarcinoma). There is thickening of the limbs of the right adrenal gland without foc al nodule. Abdominal aortic aneurysm with endostent. [place] abdominal aorta measures up to 5 cm. Contrast is seen in the stent lumen in the aorta and into the right iliac. No contrast seen in the stent lume n in the left iliac. There is also bifemoral bypass with contrast in the lumen. Urinary bladder margins are smooth. No free fluid. Osseous structures are grossly intact. Abnormal appearance to the lungs with findings described on the concurrently performed CT pulmonary. CONCLUSION: 1. Several abnormal appearing loops of small bowel in the right lower quadrant, nondistended, but wit h concentric wall thickening. 2. No evidence of retroperitoneal adenopathy. 3. Aortic aneurysm with endostent and bifemoral bypass. 4. Left adrenal metastasis measures 1.5 cm. Tyler Smyth MD on May 02, 2017 at 19:32 Board Certified Radiologist. This report was verified electronically.
[2017-05-02] MEDS ORDERED: DONEPEZIL HCL 5 MG TAB PO SCH (21:00)
[2017-05-02] MEDS ORDERED: CEFEPIME INJ 2,000 MG in SODIUM CHLORIDE 0.9% INJ 100 ML IV SCH (22:00)
[2017-05-03] MEDS ORDERED: VANCOMYCIN 1,000 MG/NS 250 ML IV SCH ×4 (04:00)
[2017-05-05] MEDS ORDERED: PHARMACY ORDERED LAB ONE ×2 (03:45)
== END 2017-05-03 00:02 | disposition expired | DRG 871 ==
LOC: NEPE 19:48 → NEDA 21:54 → HOCA 05-02 00:49 → HIMN 05-02 01:50
PROVIDERS: ADMIT Internal Medicine Critical Care Medicine; ATTEND Internal Medicine Critical Care Medicine
PROC: 30253N1 (ICD-10-PCS; principal; 2017-05-01)
DX: A41.9 Sepsis, unspecified organism (principal); J69.0 Pneumonitis due to inhalation of food and vomit; N17.9 Acute kidney failure, unspecified; E46 Unspecified protein-calorie malnutrition; E27.8 Other specified disorders of adrenal gland; K92.2 Gastrointestinal hemorrhage, unspecified; C15.9 Malignant neoplasm of esophagus, unspecified; D70.3 Neutropenia due to infection; I48.2 Chronic atrial fibrillation; I11.0 Hypertensive heart disease with heart failure; I50.9 Heart failure, unspecified; J44.9 Chronic obstructive pulmonary disease, unspecified; E11.9 Type 2 diabetes mellitus without complications; E86.0 Dehydration; D64.9 Anemia, unspecified; I25.10 Atherosclerotic heart disease of native coronary artery without angina pectoris; I25.2 Old myocardial infarction; I73.89 Other specified peripheral vascular diseases; R13.10 Dysphagia, unspecified; T45.1X5A Adverse effect of antineoplastic and immunosuppressive drugs, initial encounter; Z79.01 Long term (current) use of anticoagulants; Z86.79 Personal history of other diseases of the circulatory system; Z95.810 Presence of automatic (implantable) cardiac defibrillator
CPT/HCPCS: 36430; 36600; 71010; 71275; 74020; 74177; 74230; 80053; 82607; 82728; 82747; 82805; 83540; 83550; 85007; 85014; 85018; 85025; 85027; 85610; 85730; 86850; 86900; 86901; 86920; 87040; 96365; 96375; 99214; C9113; C9132; G0463; G8996-GN; G8997-GN; G8998-GN; J0692; J1100; J1170; J1450; J1626; J1642; J1720; J1940; J2405; J3370; J7030; J7040; J7050; P9040; Q9963; Q9967